=== PATIENT | male | born 1965 | race Caucasian/White ===

== ENCOUNTER 2018-01-01 21:17 | Emergency (ER) | payer MEDICAID, MEDICARE ==
--- NOTE | 2018-01-01 21:48 | RAD ---
CHEST TWO VIEWS: 01/01/18 COMPARISON: 05/09/17 study. HISTORY: Fell with right sided rib pain. Heart size is borderline. Mediastinal structures are unremarkable. The lungs are clear of any infiltr ative process. No signs of pneumothorax. There is elevation of the right hemidiaphragm. No definitive rib fracture is seen. Postoperative changes of the cervical spine are noted. IMPRESSION: No acute findings. POS: [facility]
--- NOTE | 2018-01-01 23:11 | CT ---
CT OF THE CHEST PERFORMED WITHOUT CONTRAST ENHANCEMENT: 01/01/18 HISTORY: COPD. History of fall last Sunday with right sided rib pain. The lungs are clear of any infiltrative process. Minimal gravity dependent atelectasis is seen in the lung bases. No pneumothorax. No rib fractures are visualized. Mediastinal structures appear unremarkable. There are some coronary artery calcifications present. The visualized portions of the liver and spleen appear unremarkable. There are arthritic changes of the spine noted. IMPRESSION: No acute findings. POS: [facility]
== END 2018-01-01 23:32 | disposition home or self-care (01) ==
LOC: ERS 21:17
DX: R07.89 Other chest pain (principal); I10 Essential (primary) hypertension; J44.9 Chronic obstructive pulmonary disease, unspecified; F17.210 Nicotine dependence, cigarettes, uncomplicated; Z86.711 Personal history of pulmonary embolism; Z79.899 Other long term (current) drug therapy; Z71.6 Tobacco abuse counseling; W18.30XA Fall on same level, unspecified, initial encounter
CPT/HCPCS: 71046; 71250; 99406

== ENCOUNTER 2018-03-13 06:45 | Outpatient (CLI) | payer MEDICARE | END 2018-03-13 06:46 | disposition home or self-care (01) | LOC: BICULT 06:45 | PROVIDERS: ATTEND Internal Medicine Gastroenterology | DX: R10.13 Epigastric pain (principal) | CPT/HCPCS: 76705 ==

== ENCOUNTER 2018-03-19 00:35 | Emergency (ER) | payer MEDICARE ==
[2018-03-19 01:35] LABS: Bilirubin Negative (Negative); Blood, Urine Negative (Negative); Clarity CLEAR (Clear); Glucose, Urine (Dipstick) >=1000 mg/dL (Negative); Leukocyte Negative (Negative); Nitrite Negative (Negative); Protein, Urine (Dipstick) Negative (Neg-Trace); Specific Gravity, Urine 1.016 (1.002-1.036); Urobilinogen 0.2 mg/dL (0.2-1.0)
[2018-03-19 01:37] LABS: #Eosinphils 0.1 thou/uL (0.0-0.7); #Lymphocytes 0.9 thou/uL (1.20-3.40); #Monocytes 0.5 thou/uL (0.11-0.59); #Neutrophils 11.1 thou/uL (1.40-6.50); %Eosinophils 0.4 % (0.0-10.0); %Lymphocytes 7.1 % (21.0-51.0); %Monocytes 4.2 % (0.0-10.0); %Neutrophils 88.2 % (42.0-75.0); Mean Corpuscular HGB CONC 33.7 g/dL (32.0-36.0); Mean Corpuscular Hemoglobin 27.5 pg (27.0-31.0); Mean Corpuscular Volume 81.7 fL (78.0-98.0); Mean Platelet Volume 6.5 fL (7.4-10.4); Platelet Count 383 thou/uL (130-400); RBC Distribution Width 15.1 % (11.5-14.5); Red Blood Cell (RBC) Count 4.36 mill/uL (4.70-6.10); White Blood Cell (WBC) Count 12.6 thou/uL (4.8-10.8)
[2018-03-19 02:00] LABS: ALT (SGPT) 23 U/L (8-55); AST (SGOT) 13 U/L (5-34); Albumin 3.9 g/dL (3.5-5.0); Alkaline Phosphatase 71 U/L (40-150); Anion Gap 17 mmol/L (10-20); BUN (Urea Nitrogen) 19 mg/dL (8.4-25.7); Bilirubin, Total 0.3 mg/dL (0.2-1.2); Calc. Creatinine Clearance 0 mL/min (70-130); Calcium 9.3 mg/dL (7.8-10.44); Carbon Dioxide 24 mmol/L (22-29); Chloride 96 mmol/L (98-107); Estimated GFR-MDRD 54; Globulin 3.2 g/dL (2.4-3.5); Potassium 4.8 mmol/L (3.5-5.1); Protein, Total 7.1 g/dL (6.0-8.3); Sodium 132 mmol/L (136-145)
[2018-03-19 02:09] LABS: Glucose 591 mg/dL (70-105)
[2018-03-19 02:33] LABS: Magnesium 2.5 mg/dL (1.6-2.6)
[2018-03-19 03:04] LABS: Base Excess-Venous 1.7 mmol/L (0 (+/- 2.5)); Bicarbonate (HCO3v) 25.8 mmol/L (1.0-85.0); Calcium, Ionized 1.01 mmol/L (1.12-1.32); O2 Tension (PvO2) 66.9 mmHg (35.0-45.0); Potassium 4.2 mmol/L (3.4-4.7); vO2 Saturation-calc 93.7 % (94-98)
[2018-03-19] MEDS ORDERED: Insulin Regular 300 UNITS/3 ML VIAL ONE (03:46)
[2018-03-19] MEDS ORDERED: Ondansetron ODT 4 MG TAB ONE (04:09)
== END 2018-03-19 04:57 | disposition home or self-care (01) ==
LOC: ERS 00:35
DX: E11.65 Type 2 diabetes mellitus with hyperglycemia (principal); E86.0 Dehydration; J44.9 Chronic obstructive pulmonary disease, unspecified; I10 Essential (primary) hypertension; Z87.891 Personal history of nicotine dependence; Z86.711 Personal history of pulmonary embolism; Z79.899 Other long term (current) drug therapy
CPT/HCPCS: 36415; 36416; 80053; 81003; 82010; 82330; 82803; 83735; 84100; 85025; 96361; 96374; J1815; Q0162

== ENCOUNTER 2018-03-29 07:28 | Outpatient (CLI) | payer MEDICARE ==
[2018-03-29] MEDS ORDERED: Iopamidol 370 76% 50 ML VIAL FS ONE (11:55)
[2018-03-29] MEDS ORDERED: Iopamidol 370 76% 100 ML VIAL ONE (11:55)
--- NOTE | 2018-03-29 15:27 | NM ---
RADIONUCLIDE GASTRIC EMPTYING SCAN: Date: 03/29/18 HISTORY: Abdominal distention, epigastric pain, benign neoplasm of duodenum, benign neoplasm of stomach. RADIOPHARMACEUTICAL: 2 mCi technetium-99m sulfur colloid administered orally in scrambled eggs. FINDINGS/IMPRESSION: There is 45% emptying of the ingested gastric contents at 30 minutes, 73% emptying a 2 hours, 77% emp tying at 3 hours, and 89% emptying at 4 hours. POS: [facility]
--- NOTE | 2018-03-29 16:00 | CT ---
CT ABDOMEN AND PELVIS WITH IV AND ORAL CONTRAST: 03/29/18 HISTORY: Abdominal pain. Nausea and vomiting. FINDINGS: Lung bases are clear. Cyst arising from the anterior margin left kidney is unchanged in appearance. T he liver, spleen, right kidney, adrenal glands, and pancreas are unremarkable. No enlarged lymph node s or free fluid. Postoperative changes of the anterior midline abdominal wall with eventration just b elow the level of the diaphragm. Small fat containing pouch of omentum just deep to the anterior abdo john wall above the umbilicus is also likely related to prior surgery. No evidence of inflammation. IMPRESSION: Postoperative changes. Chronic type findings are stable. No acute abnormalities are demonstrated to e xplain the patient's pain. POS: [facility]
== END 2018-03-29 07:29 | disposition home or self-care (01) ==
LOC: NM 07:28
PROVIDERS: ATTEND Internal Medicine Gastroenterology
DX: R10.13 Epigastric pain (principal); R14.0 Abdominal distension (gaseous); D13.1 Benign neoplasm of stomach; D13.2 Benign neoplasm of duodenum; Z98.890 Other specified postprocedural states
CPT/HCPCS: 74177; 78264; A9541

== ENCOUNTER 2018-04-10 21:05 | Emergency (ER) | payer MEDICAID, MEDICARE ==
[2018-04-10 21:36] LABS: #Eosinphils 0.1 thou/uL (0.0-0.7); #Lymphocytes 1.4 thou/uL (1.20-3.40); #Monocytes 0.9 thou/uL (0.11-0.59); #Neutrophils 13.1 thou/uL (1.40-6.50); %Basophils 0.3 % (0.0-1.0); %Eosinophils 0.4 % (0.0-10.0); %Lymphocytes 8.9 % (21.0-51.0); %Neutrophils 84.5 % (42.0-75.0); Hemoglobin 12.7 g/dL (14.0-18.0); Mean Corpuscular HGB CONC 34.1 g/dL (32.0-36.0); Mean Corpuscular Hemoglobin 27.7 pg (27.0-31.0); Mean Platelet Volume 6.3 fL (7.4-10.4); Platelet Count 442 thou/uL (130-400); RBC Distribution Width 16.5 % (11.5-14.5); Red Blood Cell (RBC) Count 4.58 mill/uL (4.70-6.10); White Blood Cell (WBC) Count 15.5 thou/uL (4.8-10.8)
[2018-04-10 21:45] LABS: Bilirubin Negative (Negative); Blood, Urine Negative (Negative); Clarity CLEAR (Clear); Glucose, Urine (Dipstick) >=1000 mg/dL (Negative); Leukocyte Negative (Negative); Nitrite Negative (Negative); Protein, Urine (Dipstick) Negative (Neg-Trace); Specific Gravity, Urine 1.028 (1.002-1.036); Urobilinogen 0.2 mg/dL (0.2-1.0)
[2018-04-10 21:56] LABS: ALT (SGPT) 24 U/L (8-55); AST (SGOT) 11 U/L (5-34); Albumin 3.9 g/dL (3.5-5.0); Alkaline Phosphatase 69 U/L (40-150); Anion Gap 16 mmol/L (10-20); BUN (Urea Nitrogen) 27 mg/dL (8.4-25.7); Bilirubin, Total 0.4 mg/dL (0.2-1.2); Calc. Creatinine Clearance 0 mL/min (70-130); Calcium 9.1 mg/dL (7.8-10.44); Carbon Dioxide 27 mmol/L (22-29); Chloride 94 mmol/L (98-107); Estimated GFR-MDRD 39; Globulin 2.8 g/dL (2.4-3.5); Glucose 459 mg/dL (70-105); Potassium 4.3 mmol/L (3.5-5.1); Protein, Total 6.7 g/dL (6.0-8.3); Sodium 133 mmol/L (136-145)
[2018-04-10 22:23] LABS: Bicarbonate (HCO3v) 26.9 mmol/L (1.0-85.0); CO2 Tension (PvCO2) 42.4 mmHg (41.0-51.0); Calcium, Ionized 1.14 mmol/L (1.12-1.32); O2 Tension (PvO2) 38.6 mmHg (35.0-45.0); T. Carbon Dioxide 28.2 mmol/L (1.0-85.0); pH (Venous) 7.411 (7.35-7.45); vO2 Saturation-calc 73.5 % (94-98)
[2018-04-11] MEDS ORDERED: Insulin Regular 300 UNITS/3 ML VIAL ONE (00:26)
== END 2018-04-11 00:52 | disposition home or self-care (01) ==
LOC: ERS 21:05
DX: E11.65 Type 2 diabetes mellitus with hyperglycemia (principal); J44.9 Chronic obstructive pulmonary disease, unspecified; I10 Essential (primary) hypertension; Z87.891 Personal history of nicotine dependence; Z86.711 Personal history of pulmonary embolism; Z79.4 Long term (current) use of insulin; Z79.899 Other long term (current) drug therapy
CPT/HCPCS: 36416; 80053; 81003; 82010; 82330; 82803; 83605; 85025; 96361; 96374; J1815

== ENCOUNTER 2018-05-10 19:34 | Observation (INO) | payer MEDICARE ==
[~2018-05-10 19:34] MED LIST: ISOVUE-370 76%-LOCM 1 ML ONE
[2018-05-10 20:04] LABS: #Eosinphils 0.2 thou/uL (0.0-0.7); #Lymphocytes 1.9 thou/uL (1.20-3.40); #Monocytes 0.8 thou/uL (0.11-0.59); #Neutrophils 5.6 thou/uL (1.40-6.50); %Basophils 0.5 % (0.0-1.0); %Eosinophils 1.8 % (0.0-10.0); %Lymphocytes 22.5 % (21.0-51.0); %Neutrophils 66.2 % (42.0-75.0); Hemoglobin 11.3 g/dL (14.0-18.0); Mean Corpuscular HGB CONC 32.8 g/dL (32.0-36.0); Mean Corpuscular Hemoglobin 27.8 pg (27.0-31.0); Mean Corpuscular Volume 84.6 fL (78.0-98.0); Mean Platelet Volume 6.3 fL (7.4-10.4); Platelet Count 531 thou/uL (130-400); Red Blood Cell (RBC) Count 4.06 mill/uL (4.70-6.10); White Blood Cell (WBC) Count 8.4 thou/uL (4.8-10.8)
--- NOTE | 2018-05-10 20:11 | RAD ---
CHEST ONE VIEW 05/10/18 HISTORY: Chest pain. COMPARISON: Chest radiograph 01/01/18. FINDINGS: Lungs are without focal air space consolidation, pneumothorax or effusion. Cardiac silhouette and med iastinal contours are similar. No acute osseous abnormality. IMPRESSION: No acute intrathoracic abnormality. POS: [facility]
[2018-05-10 20:29] LABS: ALT (SGPT) 32 U/L (8-55); AST (SGOT) 24 U/L (5-34); Alkaline Phosphatase 52 U/L (40-150); Anion Gap 14 mmol/L (10-20); BUN (Urea Nitrogen) 8 mg/dL (8.4-25.7); Bilirubin, Total 0.3 mg/dL (0.2-1.2); CK (CPK) 41 U/L (30-200); Calc. Creatinine Clearance 0 mL/min (70-130); Calcium 9.2 mg/dL (7.8-10.44); Carbon Dioxide 29 mmol/L (22-29); Chloride 99 mmol/L (98-107); Estimated GFR-MDRD 81; Glucose 132 mg/dL (70-105); Lipase 40 U/L (8-78); Potassium 3.5 mmol/L (3.5-5.1); Sodium 138 mmol/L (136-145)
[2018-05-10 20:33] LABS: Troponin I 0.017 ng/mL (< 0.028)
--- NOTE | 2018-05-10 21:21 | CT ---
CT ANGIOGRAM CHEST WITH CONTRAST: 05/10/18 HISTORY: Chest pain. Shortness of breath. COMPARISON: CT angiogram chest 05/09/17. FINDINGS: CT angiogram chest performed after the intravenous administration of contrast. 3D rendering provided. No proximal segmental pulmonary arterial filling defect. Likely reactive right paratracheal lymph no coby. Increased mediastinal fat. No evidence for pneumonia. No significant pericardial effusion. Healing right anterior fourth, fifth, rib fractures. The manubrium and the sternum are intact. No left sided rib fractures. No thoracic sp ine compression fracture. Diffuse hepatic steatosis. IMPRESSION: 1. No proximal segmental pulmonary arterial filling defect. 2. Healing right anterior fourth and fifth rib fractures. POS: [facility]
[2018-05-10] MEDS ORDERED: Meclizine HCl 25 MG TAB ONE (21:35)
[2018-05-10] MEDS ORDERED: Ondansetron ODT 4 MG TAB SL PRN (22:30)
[2018-05-10] MEDS ORDERED: Sodium Chloride 0.9% 1,000 ML IV SCH (22:30)
[2018-05-10] MEDS ORDERED: Ondansetron HCl/PF 4 MG/2 ML Vial IVP PRN (22:30)
[2018-05-10] MEDS ORDERED: Albuterol Sulfate 2.5 mg/3 ml Neb NEB PRN (22:54)
[2018-05-10] MEDS ORDERED: Budesonide 0.25 MG/2 ML NEB NEB PRN (22:54)
[2018-05-10 23:19] LABS: Troponin I 0.042 ng/mL (< 0.028)
[2018-05-10] MEDS ORDERED: rOPINIRole HCl 1 MG TAB PO SCH (23:45)
[2018-05-11] MEDS ORDERED: Dextrose 5% in Water 1,000 ML IV PRN (02:26)
[2018-05-11] MEDS ORDERED: Dextrose 50% Abboject 50 ML SYRINGE SLOW IVP PRN (02:26)
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
[2018-05-11 04:40] LABS: #Eosinphils 0.2 thou/uL (0.0-0.7); #Lymphocytes 2.1 thou/uL (1.20-3.40); #Monocytes 0.6 thou/uL (0.11-0.59); #Neutrophils 5.4 thou/uL (1.40-6.50); %Basophils 0.5 % (0.0-1.0); %Eosinophils 2.1 % (0.0-10.0); %Lymphocytes 25.1 % (21.0-51.0); %Neutrophils 65.2 % (42.0-75.0); Hemoglobin 10.8 g/dL (14.0-18.0); Mean Corpuscular HGB CONC 33.1 g/dL (32.0-36.0); Mean Corpuscular Volume 84.6 fL (78.0-98.0); Mean Platelet Volume 6.4 fL (7.4-10.4); Platelet Count 454 thou/uL (130-400); RBC Distribution Width 16.8 % (11.5-14.5); Red Blood Cell (RBC) Count 3.85 mill/uL (4.70-6.10); White Blood Cell (WBC) Count 8.3 thou/uL (4.8-10.8)
[2018-05-11 05:03] LABS: Anion Gap 14 mmol/L (10-20); BUN (Urea Nitrogen) 7 mg/dL (8.4-25.7); Calc. Creatinine Clearance 197 mL/min (70-130); Calcium 8.7 mg/dL (7.8-10.44); Carbon Dioxide 25 mmol/L (22-29); Chloride 102 mmol/L (98-107); Estimated GFR-MDRD Greater than 90; Glucose 118 mg/dL (70-105); Potassium 3.2 mmol/L (3.5-5.1); Sodium 138 mmol/L (136-145)
[2018-05-11] MEDS: Furosemide 20 MG TAB PO SCH ×2 (05:39→14:44)
[2018-05-11] MEDS: Apixaban 5 MG TAB PO SCH ×2 (08:11→21:06)
[2018-05-11] MEDS: Acetaminophen 325 MG TAB PO PRN ×3 (08:11→23:25)
[2018-05-11] MEDS: Aspirin 325 MG TAB PO SCH (08:11)
[2018-05-11] MEDS: Potassium Chloride 20 MEQ TAB PO SCH (08:13)
[2018-05-11] MEDS: Mometasone/Formoterol 120 PUFF INHALER INH SCH ×2 (08:23→18:12)
--- NOTE | 2018-05-11 08:37 | ULT ---
CAROTID ULTRASOUND: Date: 05/11/18 HISTORY: Near syncope. Dizziness. COMPARISON: None. TECHNIQUE: Jones scale, color flow, Doppler imaging, and spectral waveform analysis performed in the carotid and vertebral arteries. FINDINGS: RIGHT CAROTID: There is atherosclerosis in the distal common carotid artery, carotid bifurcation, and internal carot id artery. Peak systolic velocity of the common carotid artery is 144 cm/second. Peak systolic veloci ty of the internal carotid artery is 83 cm/second. Systolic ICA/CCA ratio is 0.6. LEFT CAROTID: Small amount of atherosclerotic disease in the carotid bifurcation. Peak systolic velocity of the com mon carotid artery is 120 cm/second. Peak systolic velocity of the internal carotid artery is 92.8 cm /second. Systolic ICA/CCA ratio is 0.8. Neither vertebral artery could be assessed. IMPRESSION: Moderate (50-69%) stenosis involving the right common carotid artery. Better interrogation with CT an giogram of the neck is recommended. POS: [facility]
[2018-05-11] MEDS ORDERED: Carvedilol 6.25 MG TAB PO SCH (09:00)
[2018-05-11] MEDS ORDERED: Potassium Chloride 40 MEQ in Premix Bag 1 BAG IVPB SCH (10:15)
[2018-05-11] MEDS: Potassium Chloride 20 MEQ in Premix Bag 1 BAG IVPB SCH ×2 (10:55→14:43)
[2018-05-11] MEDS: Sodium Chloride 0.9% 1,000 ML IV SCH (10:58)
--- NOTE | 2018-05-11 11:34 | PDOC.PN ---
- Subjective Encounter Start Date: 05/11/18 Encounter Start Time: 11:32 Subjective: c/o abd cramps likle muscle cramps -: no N/V/D.no F/C.has had extensice w/u as an OP for same -: no CP.but still feels SOB - Objective Resuscitation Status: Resuscitation Status FULL:Full Resuscitation MAR Reviewed: Yes Vital Signs & Weight: Vital Signs (12 hours) Temp Pulse Resp BP BP Pulse Ox 05/11/18 11:17 98.3 F 86 18 108/60 95 05/11/18 08:23 95 20 95 05/11/18 08:12 131/76 05/11/18 07:23 98.1 F 97 18 131/76 94 L 05/11/18 02:15 82 18 113/58 L 96 Weight Weight 298 lb 14.4 oz Result Diagrams: 05/11/18 03:58 05/11/18 03:58 Additional Labs: Laboratory Tests 05/10/18 05/10/18 05/11/18 19:54 22:49 01:55 Troponin I 0.017 0.042 H 0.030 H Phys Exam - Physical Examination Constitutional: NAD CPAP mask on HEENT: PERRLA, moist MMs, sclera anicteric, oral pharynx no lesions Neck: no nodes, no JVD, supple, full ROM Respiratory: no wheezing, no rales, no rhonchi, clear to auscultation bilateral Cardiovascular: RRR, no significant murmur, no rub Gastrointestinal: soft, non-tender, no distention, positive bowel sounds Musculoskeletal: no edema, pulses present Neurological: non-focal, normal sensation, moves all 4 limbs Psychiatric: normal affect, A&O x 3 Skin: no rash Dx/Plan (1) Near syncope Status: Acute (2) NSTEMI (non-ST elevated myocardial infarction) Code(s): I21.4 - NON-ST ELEVATION (NSTEMI) MYOCARDIAL INFARCTION Status: Acute (3) Hypokalemia Code(s): E87.6 - HYPOKALEMIA Status: Acute (4) Chest pain Code(s): R07.9 - CHEST PAIN, UNSPECIFIED Status: Acute (5) Dyspnea Code(s): R06.00 - DYSPNEA, UNSPECIFIED Status: Acute Qualifiers: Dyspnea type: dyspnea on exertion Qualified Code(s): R06.09 - Other forms of dyspnea (6) Hx pulmonary embolism Code(s): Z86.711 - PERSONAL HISTORY OF PULMONARY EMBOLISM Status: Chronic Comment: on eliquis (7) Chronic anticoagulation Code(s): Z79.01 - CORRECTION (CURRENT) USE OF ANTICOAGULANTS Status: Chronic (8) Carotid artery stenosis Code(s): I65.29 - OCCLUSION AND STENOSIS OF UNSPECIFIED CAROTID ARTERY Status : Acute Qualifiers: Laterality: left Qualified Code(s): I65.22 - Occlusion and stenosis of left carotid artery (9) Hypertension Code(s): I10 - ESSENTIAL (PRIMARY) HYPERTENSION Status: Chronic (10) CAD (coronary artery disease) Code(s): I25.10 - ATHSCL HEART DISEASE OF [place] CORONARY ARTERY W/O ANG PCTRS Status: Chronic Comment: on BB, ARB,ranexa. (11) COPD (chronic obstructive pulmonary disease) Status: Chronic (12) KATHERIN (obstructive sleep apnea) Code(s): G47.33 - OBSTRUCTIVE SLEEP APNEA (ADULT) (PEDIATRIC) Status: Chronic Comment: Home CPAP - Plan respiratory therapy, out of bed/ambulate, DVT proph w/SCDs Unclear etiology of symptoms. check ECHO -: Pt reports a Treadmill stress test done by PCP 2 weeks ago- get report -: cont ASA, Ranexa,Imdur. -: get carotid CTA given stenosis and near syncope. -: pt may benefit from starting DAPT & stopping Eliquis if no longer indicated * .cardiology recs requested/ * home meds as below. * Not on any statin.check lipid panel and start Atorvastatin given CA stenosis as well Review of Systems - Review of Systems Constitutional: negative: fever, chills, sweats, weakness, malaise, other ENT: negative: Ear Pain, Ear Discharge, Nose Pain, Nose Discharge, Nose Congestion, Mouth Pain, Mouth Swelling, Throat Pain, Throat Swelling, Other Respiratory: SOB with Excertion. negative: Cough, Dry, Shortness of Breath, Hemoptysis, Pleuritic Pain, Sputum, Wheezing Cardiovascular: negative: chest pain, palpitations, orthopnea, paroxysmal nocturnal dyspnea, edema, light headedness, other Gastrointestinal: Abdominal Pain. negative: Nausea, Vomiting, Diarrhea, Constipation, Melena, Hematochezia, Other Genitourinary: negative: Dysuria, Frequency, Incontinence, Hematuria, Retention , Other Musculoskeletal: negative: Neck Pain, Shoulder Pain, Arm Pain, Back Pain, Hand Pain, Leg Pain, Foot Pain, Other Skin: negative: Rash, Lesions, Shaw, Bruising, Other Neurological: negative: Weakness, Numbness, Incoordination, Change in Speech, Confusion, Seizures, Other - Medications/Allergies Allergies/Adverse Reactions: Allergies Allergy/AdvReac Type Severity Reaction Status Date / Time No Known Drug Allergies Allergy Verified 05/10/18 22:53 Medications: Current Medications Acetaminophen (Tylenol) 650 mg PO Q4H PRN PRN Reason: Headache/Fever or Pain Last Admin: 05/11/18 08:11 Dose: 650 mg Albuterol Sulfate (Ventolin) 1.2 mg NEB TID PRN PRN Reason: sob/wheezing Apixaban (Eliquis) 5 mg PO BID [facility] Last Admin: 05/11/18 08:11 Dose: 5 mg Aspirin (Aspirin) 325 mg PO QA-[facility] Stop: 05/15/18 09:30 Last Admin: 05/11/18 08:11 Dose: 325 mg Budesonide (Pulmicort Neb Solution) 0.25 mg NEB BID PRN PRN Reason: SOB &/or Wheezing Carvedilol (Coreg) 12.5 mg PO BID [facility] Last Admin: 05/11/18 08:12 Dose: 12.5 mg Dextrose/Water (Dextrose 50%) 25 gm SLOW IVP PRN PRN PRN Reason: Hypoglycemia Furosemide (Lasix) 80 mg PO 06,14 [facility] Last Admin: 05/11/18 05:39 Dose: 80 mg Glucagon (Glucagon) 1 mg IM PRN PRN PRN Reason: Hypoglycemia Dextrose/Water (D5w) 1,000 mls @ 0 mls/hr IV .Q0M PRN PRN Reason: Hypoglycemia Sodium Chloride (Normal Saline 0.9%) 1,000 mls @ 75 mls/hr IV .[id number] [facility] Last Admin: 05/11/18 10:58 Dose: 1,000 mls Potassium Chloride 20 meq/ (Device) 100 mls @ 50 mls/hr IVPB Q2H [facility] Stop: 05/11/18 14:29 Last Admin: 05/11/18 10:55 Dose: 100 mls Insulin Human Lispro (Humalog) 0 units SC .MILD SLIDING SCALE PRN PRN Reason: Mild Correctional Scale Irbesartan (Avapro) 150 mg PO DAILY [facility] Isosorbide Mononitrate (Imdur) 60 mg PO DAILY [facility] Last Admin: 05/11/18 08:12 Dose: 60 mg Mometasone Furoate/Formoterol Fumar (Dulera 200 Mcg/5 Mcg Inhaler) 2 puff INH BID-RT [facility] Last Admin: 05/11/18 08:23 Dose: 2 puff Pantoprazole Sodium (Protonix) 40 mg PO DAILY [facility] Last Admin: 05/11/18 08:13 Dose: 40 mg Potassium Chloride (K-Dur) 20 meq PO DAILY [facility] Last Admin: 05/11/18 08:13 Dose: 20 meq Ranolazine (Ranexa) 1,000 mg PO BID [facility] Last Admin: 05/11/18 08:13 Dose: 1,000 mg Ropinirole HCl (Requip) 2 mg PO [facility]
[2018-05-11 12:23] LABS: Cardiac Risk 4.6 (Less than 4.5)
--- NOTE | 2018-05-11 16:07 | CON ---
DATE OF CONSULT: 05/11/18 HISTORY OF PRESENT ILLNESS: The patient is a 52-year-old gentleman who presents for evaluation of dizziness. The patient has a long history of coronary artery disease. Previously he has undergone cardiac catheterization in 2015. The patient was found to have diffuse coronary artery disease with an 80% distal apical lesion. The patient has been on medical therapy has done well and free of chest discomfort. He does report having a history of dizziness, particularly when he stands. The patient was in his usual state of health when he suddenly became very dizzy and lightheaded. The patient also reporting having midsternal chest discomfort. This occurred only when he would lie down in a certain position. The patient denies having any present chest discomfort. PAST MEDICAL HISTORY: 1. Coronary artery disease. 2. Hypertension. 3. History of pulmonary embolus. 4. Diabetes mellitus. 5. Sleep apnea. 6. Morbid obesity. 7. Psoriasis PAST SURGICAL HISTORY: He has had facial surgery. He has had colon surgery and neck surgery. SOCIAL HISTORY: He is a former smoker. ALLERGIES: No known drug allergies: FAMILY HISTORY: No strong family history of coronary artery disease. MEDICATIONS ON ADMISSION: Apixaban 5 b.i.d., aspirin 81 daily, Coreg 12.5 b.i.d., Avapro 150 daily, Imdur 60 daily, Prilosec 40 daily, potassium 20 daily , Ranexa 1000 b.i.d., glipizide 10 b.i.d., metformin 1000 b.i.d., ropinirole 2 mg daily. REVIEW OF SYSTEMS: Ten-point system otherwise unremarkable. PHYSICAL EXAMINATION: GENERAL: This is an obese gentleman in no acute distress. VITAL SIGNS: Blood pressure 108/60. NECK: Full. No jugular venous distention, no carotid bruits. LUNGS: Clear to auscultation. HEART: Regular rate and rhythm, normal S1, S2. ABDOMEN: Markedly distended. EXTREMITIES: Showed no edema. SKIN: Warm. NEUROLOGIC: Nonfocal. VASCULAR: Radial pulses were 2+. LABORATORY DATA: Sodium 130, potassium 3.2, chloride 102, bicarbonate 25, BUN 7 , creatinine is 0.83. His troponin was 0.03. BNP was 34. White blood cell count 8.3, hemoglobin 10.8, hematocrit 32.6. His EKG revealed him to have normal sinus rhythm and otherwise normal ECG. IMPRESSION: 1. Dizziness, possibly orthostatic. 2. Chest pain, atypical. 3. Hypertension. 4. History of pulmonary embolus. 5. Diabetes mellitus. 6. Sleep apnea. 7. Morbid obesity. This gentleman presents primarily with dizziness. He has atypical chest discomfort. We will check the patient's orthostatics. We will check an echocardiogram. The patient's carotid ultrasound did reveal evidence of cerebrovascular disease. We will obtain a CT MRA. We will follow this patient with you through his hospitalization. We will try to decrease the dose of his Coreg. MTDD
[2018-05-11] MEDS: HumaLOG 300 UNITS/3 ML VIAL SC PRN (17:08)
[2018-05-11] MEDS ORDERED: rOPINIRole HCl 1 MG TAB PO SCH (21:00)
[2018-05-11] MEDS ORDERED: Atorvastatin Calcium 20 MG TAB PO SCH (21:00)
[2018-05-11] MEDS: Carvedilol 6.25 MG TAB PO SCH (21:06)
[2018-05-12 04:28] LABS: Anion Gap 15 mmol/L (10-20); BUN (Urea Nitrogen) 7 mg/dL (8.4-25.7); Calc. Creatinine Clearance 207 mL/min (70-130); Calcium 8.4 mg/dL (7.8-10.44); Carbon Dioxide 24 mmol/L (22-29); Chloride 102 mmol/L (98-107); Estimated GFR-MDRD Greater than 90; Glucose 142 mg/dL (70-105); Potassium 3.3 mmol/L (3.5-5.1); Sodium 138 mmol/L (136-145)
[2018-05-12] MEDS: Furosemide 20 MG TAB PO SCH (05:43)
[2018-05-12] MEDS: Sodium Chloride 0.9% 1,000 ML IV SCH (05:43)
[2018-05-12] MEDS: Mometasone/Formoterol 120 PUFF INHALER INH SCH (07:39)
[2018-05-12 08:07] VITALS: BP 142/83; TEMP 97.9
[2018-05-12] MEDS: Aspirin 325 MG TAB PO SCH (09:37)
[2018-05-12] MEDS: Carvedilol 6.25 MG TAB PO SCH (09:37)
[2018-05-12] MEDS: Apixaban 5 MG TAB PO SCH (09:37)
[2018-05-12] MEDS: Potassium Chloride 20 MEQ TAB PO SCH (09:38)
--- NOTE | 2018-05-12 09:38 | CT ---
CT ANGIOGRAM OF NECK: Date: 05/11/18 HISTORY: Near syncopal episode. Abnormal carotid ultrasound. Possible moderate stenosis involving the right co mmon carotid artery. TECHNIQUE: CT angiogram of the neck is performed in the axial plane. Three-dimensional reformatted images are turcios bmitted for interpretation. FINDINGS: Visualized brain parenchyma and orbits are unremarkable. Aerodigestive tract is patent. No mucosal abnormality. Limited evaluation of the anterior oral cavity due to dental amalgam artifact. Epiglottis has a normal caliber. Preepiglottic fat is preserved. The re is no prevertebral soft tissue swelling. Cervical fusion changes at C5-C6 are noted. Grade I anter olisthesis of C2 upon C3. Cervical spine vertebral body heights are maintained. There is no fracture. Varying degrees of central canal stenosis and neural foraminal narrowing on the basis of degenerativ e change. Symmetric attenuation of the parotid and submandibular glands. Note, there is fatty replacement of volodymyr th parotid glands. Sternocleidomastoid muscles are unremarkable. Unremarkable thyroid gland. No evidence of lymphadenopathy by size criteria. Upper mediastinum is unremarkable. Chronic changes in visualized lung apices. CT ANGIOGRAM: There is appropriate enhancement and luminal diameter of the visualized aortic arch. Right Carotid: Right carotid artery origin has appropriate enhancement and luminal diameter. The rig ht common carotid artery has appropriate enhancement and luminal diameter. Calcified plaque without s ignificant stenosis in the right carotid bifurcation and proximal internal carotid artery. Though the re is no significant stenosis based upon NASCET criteria, there does appear to be small ulcerative pl aque along the posterolateral aspect of the right carotid bifurcation measuring approximately 3.0 mm. Left Carotid: The left carotid artery origin has appropriate enhancement and luminal diameter. The l eft common carotid artery, carotid bifurcation, and internal carotid artery have appropriate enhancem ent and luminal diameter. There is atherosclerotic disease without significant stenosis in the left c arotid bifurcation and proximal internal carotid artery. Bilateral subclavian arteries are patent. Bilateral vertebral arteries are patent throughout their co urse in the neck. Left vertebral artery is dominant. IMPRESSION: 1. Unremarkable CT angiogram of neck. No significant stenosis based upon NASCET criteria. 2. Small ulcerative plaque along the lateral aspect of the right carotid bifurcation. Consider consu ltation with cardiovascular surgery for further evaluation. POS: [facility]
[2018-05-12] MEDS: HumaLOG 300 UNITS/3 ML VIAL SC PRN (11:43)
--- NOTE | 2018-05-12 12:31 | DIS ---
DATE OF ADMISSION: 05/11/2018 DATE OF DISCHARGE: 05/12/2018 CONDITION AT THE TIME OF DISCHARGE: Stable and improved. DISCHARGE DISPOSITION: Home. PRIMARY CARE PHYSICIAN: Aaron Funk M.D. DISCHARGE DIAGNOSES: 1. Near syncope, likely vasovagal versus secondary to beta blockers, resolved. 2. [id number]-AG-[id number] myocardial infarction. 3. Hypokalemia. 4. Chest pain, atypical. Acute coronary syndrome ruled out. 5. Dyspnea, likely chronic. 6. History of pulmonary embolism, on chronic anticoagulation. 7. Hypertension. 8. Coronary artery disease. 9. Chronic obstructive pulmonary disease. 10. Obstructive sleep apnea, on home CPAP. 11. Mild right-sided internal carotid artery atherosclerotic plaque. INHOUSE CONSULTATIONS: Cardiology, Dr. Aakash Rouse. PROCEDURES DONE IN THE HOSPITAL: 1. CT angio of the thorax, which is negative for any pulmonary embolism in the proximal vessels. He aling right anterior fourth and fifth rib fractures are seen. 2. Carotid Doppler ultrasound, which is concerning for less than 70% stenosis of the right common ca rotid artery. 3. CT angio of the neck, which shows only mild atherosclerotic plaque at the bifurcation of right ca rotid. 4. Transthoracic echocardiogram, which shows EF of 60%-65%, an unremarkable echo. HISTORY OF PRESENT ILLNESS: Mr. Negro is a 52-year-old male with past medical history of coronary a rtery disease, status post cardiac catheterization in 2014, which showed 80% apical lesion, who is on medical management, presented to the emergency room with complaints of feeling dizzy and lightheaded . He was hemodynamically stable. He underwent a CT angio given his history of pulmonary embolism, e isaura though he is religiously taking his Eliquis. It was negative for the same. He was admitted for further workup and rule out acute coronary syndrome. Please see admission history and physical for f urther details. HOSPITAL COURSE: His cardiac enzymes were unremarkable except for mild elevation to as high as 0.042 . He had no EKG changes. A carotid Doppler ultrasound and echo was ordered given his near syncopal episode. Carotid Doppler was concerning for some stenosis and a CT angio of the neck was done. It o nly showed mild atherosclerotic plaque at the right carotid bifurcation, which is not causing his sym ptoms at this time. Cardiology saw the patient and his Coreg was reduced from 12.5 to 6.[address] Padma meléndez lso recommended that he stop taking his Avapro for the time being and follow up in the outpatient set ting. He was continued on his home CPAP while in the hospital. He had no recurrence of his symptoms. This morning, he has been cleared by Cardiology for discharge and I have seen and examined the patien t and discharge plan was discussed with him and he verbalizes understanding. PHYSICAL EXAMINATION: This morning, VITAL SIGNS: Temperature 97.9, pulse of 84, respirations 22, saturating 97% on room air, blood press ure 142/83. Orthostatics were checked and were negative. He is awake, alert, oriented x3. CHEST: Clear to auscultation bilaterally. Rate and rhythm regular. He will follow up with primary care physician in 7-10 days and Cardiology in 2-3 weeks. He is also g en outpatient referral for Cardiovascular Surgery, Dr. Naranjo, to be seen within the next 3-6 months for followup for his mild right-sided carotid bifurcation plaque. He has been started on statin for this. DISCHARGE MEDICATION: New medication, atorvastatin 20 mg daily.
== END 2018-05-12 12:11 | disposition home or self-care (01) ==
LOC: ERS 19:34 → 2SW 21:30
PROVIDERS: ADMIT Hospitalist; ATTEND Hospitalist
DX: I21.4 Non-ST elevation (NSTEMI) myocardial infarction (principal); E87.6 Hypokalemia; I10 Essential (primary) hypertension; I25.10 Atherosclerotic heart disease of native coronary artery without angina pectoris; J44.9 Chronic obstructive pulmonary disease, unspecified; G47.33 Obstructive sleep apnea (adult) (pediatric); I65.21 Occlusion and stenosis of right carotid artery; E66.01 Morbid (severe) obesity due to excess calories; E11.9 Type 2 diabetes mellitus without complications; Z86.711 Personal history of pulmonary embolism; Z79.84 Long term (current) use of oral hypoglycemic drugs; Z79.899 Other long term (current) drug therapy
CPT/HCPCS: 70498; 71045; 71275; 80048 ×2; 80053; 80061; 82550; 82553; 82962 ×2; 83690; 83880; 84484 ×3; 85025 ×2; 93005; 93306; 93880; 94640 ×2; 94664; 96361 ×2; 96365; 96366; 99285; G0378 ×2; 36415; 36416; J3480

== ENCOUNTER 2018-09-03 10:48 | Outpatient (CLI) | payer MEDICARE ==
--- NOTE | 2018-09-04 15:09 | RAD ---
MODIFIED BARIUM SWALLOW WITH SPEECH THERAPIST: HISTORY: Dysphagia and gastroesophageal reflux disease without esophagitis. COMPARISON: None. FINDINGS/IMPRESSION: A modified barium swallow was performed by the speech therapist. A video was performed. No aspirati on or penetration was seen during the examination. Please see dedicated speech therapy report for sp ecific findings and recommendations. POS: EVIE
== END 2018-09-03 10:49 | disposition home or self-care (01) ==
PROVIDERS: ATTEND Otolaryngology Plastic Surgery within the Head & Neck
DX: R13.10 Dysphagia, unspecified (principal)
CPT/HCPCS: 74230

== ENCOUNTER 2018-09-08 22:55 | Observation (INO) | payer MEDICARE ==
[2018-09-08 23:27] LABS: #Eosinphils 0.1 thou/uL (0.0-0.7); #Lymphocytes 2.1 thou/uL (1.20-3.40); #Monocytes 0.9 thou/uL (0.11-0.59); #Neutrophils 9.1 thou/uL (1.40-6.50); %Eosinophils 0.8 % (0.0-10.0); %Lymphocytes 17.3 % (21.0-51.0); %Monocytes 7.2 % (0.0-10.0); %Neutrophils 74.7 % (42.0-75.0); Hemoglobin 12.1 g/dL (14.0-18.0); Mean Corpuscular Hemoglobin 27.5 pg (27.0-31.0); Mean Corpuscular Volume 80.8 fL (78.0-98.0); Mean Platelet Volume 6.5 fL (7.4-10.4); Platelet Count 422 thou/uL (130-400); RBC Distribution Width 16.3 % (11.5-14.5); Red Blood Cell (RBC) Count 4.39 mill/uL (4.70-6.10); White Blood Cell (WBC) Count 12.2 thou/uL (4.8-10.8)
--- NOTE | 2018-09-08 23:35 | RAD ---
EXAM: CHEST ONE VIEW: History: 53-year-old male with history of shortness of breath. Comparison: 05-10-18 FINDINGS: Monitor leads overlie the chest. Heart size is within normal limits. No confluent pneumonia, overt ed yane, or pleural effusion. Anterior cervical fusion changes of the lower cervical spine. IMPRESSION: No significant acute intrathoracic disease. No evidence of pneumonia or acute edema, or pleural effus ion. Atherosclerosis of the aorta. Stable from prior study. POS: SHAVONNE
[2018-09-08] MEDS ORDERED: methylPREDNISolone Sod Succ/PF 125 MG/2 ML VIAL ONE (23:38)
[2018-09-08 23:48] LABS: ALT (SGPT) 22 U/L (8-55); AST (SGOT) 11 U/L (5-34); Alkaline Phosphatase 66 U/L (40-150); Anion Gap 18 mmol/L (10-20); BUN (Urea Nitrogen) 8 mg/dL (8.4-25.7); Bilirubin, Total 0.4 mg/dL (0.2-1.2); Calc. Creatinine Clearance 0 mL/min (70-130); Calcium 9.3 mg/dL (7.8-10.44); Carbon Dioxide 25 mmol/L (22-29); Chloride 101 mmol/L (98-107); Estimated GFR-MDRD 71; Globulin 3.2 g/dL (2.4-3.5); Glucose 117 mg/dL (70-105); Potassium 3.8 mmol/L (3.5-5.1); Protein, Total 7.2 g/dL (6.0-8.3); Sodium 140 mmol/L (136-145)
[2018-09-09 00:04] LABS: CKMB 0.8 ng/mL (0-6.6)
[2018-09-09] MEDS ORDERED: Aspirin 325 MG TAB ONE (01:11)
[2018-09-09] MEDS ORDERED: Nitroglycerin 0.4 MG TAB (25 Tab Bottle) ONE (01:11)
[2018-09-09] MEDS ORDERED: Ketorolac Tromethamine 30 MG/ML VIAL ONE (02:44)
[2018-09-09] MEDS ORDERED: Dextrose 50% Abboject 50 ML SYRINGE SLOW IVP PRN (04:11)
[2018-09-09] MEDS ORDERED: Bisacodyl 10 MG SUPP PR PRN (04:11)
[2018-09-09] MEDS ORDERED: Bisacodyl 5 MG TAB PO PRN (04:11)
[2018-09-09] MEDS ORDERED: HumaLOG 300 UNITS/3 ML VIAL SC PRN ×2 (04:11)
[2018-09-09] MEDS ORDERED: Calcium Carbonate 500 MG ChewTAB PO PRN (04:11)
[2018-09-09] MEDS ORDERED: Dextrose 5% in Water 1,000 ML IV PRN (04:11)
[2018-09-09] MEDS ORDERED: Acetaminophen 325 MG TAB PO PRN (04:11)
[2018-09-09] MEDS ORDERED: Senokot S 8.6-50 MG TAB PO PRN (04:11)
[2018-09-09] MEDS ORDERED: Budesonide 0.25 MG/2 ML NEB NEB PRN (04:16)
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
[2018-09-09] MEDS ORDERED: HumaLOG 300 UNITS/3 ML VIAL ONE (06:26)
[2018-09-09] MEDS ORDERED: Mometasone/Formoterol 120 PUFF INHALER INH SCH (06:30)
[2018-09-09] MEDS ORDERED: Ipratropium Bromide 2.5 ml Neb NEB SCH (07:00)
--- NOTE | 2018-09-09 08:12 | CT ---
PRELIMINARY REPORT/[facility]/EMERGENTY AFTER-HOURS PROCEDURE CT Chest Without Contrast EXAM DATE/TIME: 09/09/2018 12:50 AM CLINICAL HISTORY: 53 years old, male; Signs and symptoms; Cough and shortness of breath; Patient HX: 53 yo m presents t o ed with SOB. PT reports intermittent SOB since may that has gradually worsened tonight, with as sociated cough. PT reports he is a former smoker, PT smoked a pack per day for 30 years but quit 4 ye ars ago. PT doesn't use oxygen at home, but does take at-home neb treatments 3x per day TECHNIQUE: Axial computed tomography images of the chest without intravenous contrast. Coronal reformatted images were created and reviewed. COMPARISON: No relevant prior studies available. FINDINGS: Lungs: Indeterminate 3 mm right upper lobe pulmonary nodule, probably clinically insignificant. No co nsolidation. No masses. Pleural space: Normal. No pneumothorax. No pleural effusion. Heart: Normal. No cardiomegaly. No pericardial effusion. Mediastinum: Esophagus is unremarkable. Aorta: Normal. No aortic aneurysm. Lymph nodes: Unremarkable. No enlarged lymph nodes. Bones/joints: Unremarkable. No acute fracture. Soft tissues: Gynecomastia. Liver: Hepatic steatosis. Kidneys and ureters: Left renal cyst. IMPRESSION: No acute findings. Thank you for allowing us to participate in the care of your patient. Dictated and Authenticated by: Carlos Alberto Salgado MD 09/09/2018 1:01 AM Central Time ([place] & [place]) FINAL REPORT CT CHEST NONCONTRAST: DATE: 09/09/2018. TIME: Performed on emergency basis at 0052 hours. HISTORY: Chest pain. Dyspnea. COMPARISON: 03/29/2018 and 01/01/2018. FINDINGS: Agree with the preliminary report by Dr. Salgado from [facility]. Tiny nonspecific left upper lobe nodule. No lobar consolidation or dominant mass. Lack of contrast limits evaluation of the va sculature and soft tissues. Left renal cyst partially visualized. Hepatosteatosis. POS: [facility]
[2018-09-09] MEDS ORDERED: Apixaban 5 MG TAB PO SCH (09:00)
[2018-09-09] MEDS ORDERED: Famotidine 20 MG TAB PO SCH (09:00)
[2018-09-09] MEDS ORDERED: Famotidine/PF 20 mg/2ml Vial SLOW IVP SCH (09:00)
[2018-09-09] MEDS ORDERED: Carvedilol 6.25 MG TAB PO SCH (09:00)
[2018-09-09] MEDS ORDERED: Levofloxacin 500 mg/D5W 100 ml Premix Bag ONE (09:09)
[2018-09-09] MEDS ORDERED: Famotidine 20 MG TAB ONE (09:14)
[2018-09-09] MEDS ORDERED: Atorvastatin Calcium 20 MG TAB PO SCH (21:00)
[2018-09-09] MEDS ORDERED: rOPINIRole HCl 2 MG TAB PO SCH (21:00)
--- NOTE | 2018-09-10 04:29 | DIS ---
DATE OF ADMISSION: 09/09/2018 DATE OF DISCHARGE: 09/09/2018 PRIMARY CARE PROVIDER: CHAVA Sam DISCHARGE DIAGNOSIS: Chronic obstructive pulmonary disease exacerbation. CONDITION OF PATIENT ON THE DAY OF DISCHARGE: Stable. I assessed Mr. Negro prior to discharge. He reports feeling better. Vital signs are stable. S1 and S2 are heard, regular. Lungs are clear to auscultation bilaterally. DISCHARGE MEDICATIONS: He is being discharged home on oral prednisone taper as well as Omnicef 300 mg 2 times a day for 10 days. Otherwise, no change was made to his pre-admission home medications as dictated by Dr. Arroyo on his history and physical note dated September 09, 2018. HOSPITAL COURSE: Mr. Negro is a pleasant 53-year-old gentleman, who was admitted to [facility] for COPD exacerbation on September 09, 2018. Please refer to Dr. Arroyo's history and physical note dated September 09, 2018. He was treated with oxygen, steroids, bronchodilators, and antibiotics. He improved clinically and was maintaining good oxygen saturations on room air. He is being discharged home in a stable condition. Many thanks for allowing me to participate in your patient's care. Please feel free to contact me with any questions or concerns. DISCHARGE DESTINATION: Home. Total amount of time spent coordinating this discharge: 31 minutes. Job ID: [id number]
--- NOTE | 2018-09-14 11:42 | EKG ---
Test Reason : Blood Pressure : / mmHG Vent. Rate : 093 BPM Atrial Rate : 093 BPM P-R Int : 146 ms QRS Dur : 072 ms QT Int : 354 ms P-R-T Axes : 042 026 062 degrees QTc Int : 440 ms Normal sinus rhythm Nonspecific ST abnormality Abnormal ECG Confirmed by ZHEN WORTHINGTON ([id number]), photograph editor AYSE CHÁVEZ ([id number]) on 09/14/2018 11:42:22 AM Referred By: Confirmed By:ZHEN WORTHINGTON
== END 2018-09-09 16:17 | disposition home or self-care (01) ==
LOC: ERS 22:55 → INTOOBSV 09-09 03:12 → ERHOLD 09-09 03:12
PROVIDERS: ADMIT Internal Medicine; ATTEND Internal Medicine
DX: J44.1 Chronic obstructive pulmonary disease with (acute) exacerbation (principal); I25.10 Atherosclerotic heart disease of native coronary artery without angina pectoris; E78.5 Hyperlipidemia, unspecified; I10 Essential (primary) hypertension; E11.9 Type 2 diabetes mellitus without complications; E66.9 Obesity, unspecified; Z98.890 Other specified postprocedural states; Z87.891 Personal history of nicotine dependence; Z79.899 Other long term (current) drug therapy; Z79.4 Long term (current) use of insulin; Z79.01 Long term (current) use of anticoagulants
CPT/HCPCS: 71045; 71250; 80053; 82553; 82962; 83880; 84484; 85025; 93005; 94640 ×2; 94760; 96374; 96375; 99285; G0378; 36415; 36416; J1885; J1956; J2920; J2930; J7050; J7620

== ENCOUNTER 2018-09-30 10:23 | Outpatient (CLI) | payer MEDICARE ==
--- NOTE | 2018-09-30 11:47 | CT ---
CT OF THE NECK WITH IV CONTRAST: DATE: 09/30/2018. COMPARISON: None. HISTORY: Difficulty swallowing, dysphagia, hoarseness. TECHNIQUE: Axial CT imaging at 3 mm intervals provided from level of skull base through the lung apices with IV contrast. Coronal and sagittal reformatted imaging obtained. FINDINGS: The imaged paranasal sinuses and mastoid air cells are well aerated. The parotid glands and submandibular glands demonstrate no acute findings. The retroantral fat and t he parapharyngeal fat is clear bilaterally. Level of the tonsillar pillars, epiglottis and preepiglottic fat, hyoid bone, thyroid cartilage, and cricoid cartilage appear unremarkable. The thyroid gland and level of the glottis appear unremarkabl e as well. There is prominent superior mediastinal fat. There is mild atherosclerotic calcification of the aort ic arch. The visualized lung apices demonstrate no acute findings. There is anterior diskectomy and fusion hardware present at the C5-6 level. There is mild atherosclerotic calcification at the origin of bilateral internal carotid arteries. No lymphadenopathy is apparent within the neck. Review of the osseous structures no worrisome lytic or blastic bone lesion. Uncovertebral osteophyte formation with extension into the neural foramina noted bilaterally at C5-6. IMPRESSION: No acute findings. Incidental findings as described above. POS: SHAVONNE
[2018-09-30] MEDS ORDERED: ISOVUE-370 76%-LOCM 1 ML ONE (16:59)
== END 2018-09-30 10:24 | disposition home or self-care (01) ==
LOC: BICCT 10:23
PROVIDERS: ATTEND Otolaryngology Plastic Surgery within the Head & Neck
DX: R22.1 Localized swelling, mass and lump, neck (principal)
CPT/HCPCS: 70491; Q9966

== ENCOUNTER 2018-11-21 21:32 | Observation (INO) | payer MEDICARE ==
[2018-11-21 21:56] LABS: #Eosinphils 0.4 thou/uL (0.0-0.7); #Lymphocytes 1.9 thou/uL (1.20-3.40); #Monocytes 0.7 thou/uL (0.11-0.59); #Neutrophils 5.6 thou/uL (1.40-6.50); %Basophils 0.6 % (0.0-1.0); %Eosinophils 5.1 % (0.0-10.0); %Lymphocytes 21.5 % (21.0-51.0); %Neutrophils 64.9 % (42.0-75.0); Hemoglobin 10.9 g/dL (14.0-18.0); Mean Corpuscular HGB CONC 32.4 g/dL (32.0-36.0); Mean Corpuscular Hemoglobin 26.7 pg (27.0-31.0); Mean Corpuscular Volume 82.6 fL (78.0-98.0); Mean Platelet Volume 6.6 fL (7.4-10.4); Platelet Count 446 thou/uL (130-400); RBC Distribution Width 15.7 % (11.5-14.5); Red Blood Cell (RBC) Count 4.06 mill/uL (4.70-6.10); White Blood Cell (WBC) Count 8.7 thou/uL (4.8-10.8)
[2018-11-21 22:18] LABS: ALT (SGPT) 16 U/L (8-55); AST (SGOT) 16 U/L (5-34); Alkaline Phosphatase 54 U/L (40-150); Anion Gap 17 mmol/L (10-20); BUN (Urea Nitrogen) 11 mg/dL (8.4-25.7); Bilirubin, Total 0.2 mg/dL (0.2-1.2); Calc. Creatinine Clearance 0 mL/min (70-130); Calcium 9.2 mg/dL (7.8-10.44); Carbon Dioxide 29 mmol/L (22-29); Chloride 99 mmol/L (98-107); Estimated GFR-MDRD 57; Globulin 3.1 g/dL (2.4-3.5); Glucose 148 mg/dL (70-105); Potassium 3.6 mmol/L (3.5-5.1); Protein, Total 7.1 g/dL (6.0-8.3); Sodium 141 mmol/L (136-145)
--- NOTE | 2018-11-21 22:28 | RAD ---
CHEST ONE VIEW: 11/21/18 HISTORY: Cough and wheezing. COMPARISON: 09/08/18. FINDINGS: The cardiac silhouette is magnified by projection. Pulmonary vasculature upper limits of normal. Medi astinum is midline. Lobulation right hemidiaphragm is more apparent than on previous exams. No conflu ent air space consolidation or evidence of pneumothorax. IMPRESSION: No active cardiopulmonary abnormalities are demonstrated. POS: [facility]
[2018-11-21] MEDS ORDERED: Dexamethasone 10 MG/ML VIAL ONE (22:36)
[2018-11-21] MEDS ORDERED: Acetaminophen 500 MG TAB ONE (23:06)
[2018-11-21 23:13] LABS: CKMB 1.1 ng/mL (0-6.6)
[2018-11-21] MEDS ORDERED: Aspirin 325 MG TAB ONE (23:15)
[2018-11-21] MEDS ORDERED: Ondansetron PF 4 MG/2 ML Vial IVP PRN (23:46)
[2018-11-21] MEDS ORDERED: Ondansetron ODT 4 MG TAB PO PRN (23:46)
[2018-11-21] MEDS ORDERED: Acetaminophen 325 MG TAB PO PRN (23:46)
[2018-11-21] MEDS ORDERED: Bacteriostatic Water 30 ML VIAL FS PRN (23:53)
[2018-11-22 00:55] VITALS: BMI 45.1
[2018-11-22] MEDS: methylPREDNISolone Sod Succ 40 MG VIAL IVP SCH ×3 (01:10→12:19)
[2018-11-22] MEDS ORDERED: Dextrose 50% Abboject 50 ML SYRINGE SLOW IVP PRN (05:04)
[2018-11-22] MEDS ORDERED: Dextrose 5% in Water 1,000 ML IV PRN (05:04)
[2018-11-22 05:08] LABS: #Eosinphils 0.1 thou/uL (0.0-0.7); #Lymphocytes 0.8 thou/uL (1.20-3.40); #Monocytes 0.1 thou/uL (0.11-0.59); #Neutrophils 7.8 thou/uL (1.40-6.50); %Eosinophils 0.9 % (0.0-10.0); %Lymphocytes 9.3 % (21.0-51.0); %Monocytes 1.4 % (0.0-10.0); %Neutrophils 88.4 % (42.0-75.0); Hemoglobin 10.7 g/dL (14.0-18.0); Mean Corpuscular HGB CONC 32.2 g/dL (32.0-36.0); Mean Corpuscular Hemoglobin 26.9 pg (27.0-31.0); Mean Corpuscular Volume 83.3 fL (78.0-98.0); Mean Platelet Volume 6.9 fL (7.4-10.4); Platelet Count 414 thou/uL (130-400); RBC Distribution Width 15.9 % (11.5-14.5); Red Blood Cell (RBC) Count 3.99 mill/uL (4.70-6.10); White Blood Cell (WBC) Count 8.8 thou/uL (4.8-10.8)
[2018-11-22 05:30] LABS: Anion Gap 15 mmol/L (10-20); BUN (Urea Nitrogen) 13 mg/dL (8.4-25.7); Calc. Creatinine Clearance 126 mL/min (70-130); Calcium 9.2 mg/dL (7.8-10.44); Carbon Dioxide 28 mmol/L (22-29); Chloride 96 mmol/L (98-107); Estimated GFR-MDRD 57; Glucose 296 mg/dL (70-105); Potassium 3.9 mmol/L (3.5-5.1); Sodium 135 mmol/L (136-145)
[2018-11-22] MEDS: HumaLOG 300 UNITS/3 ML VIAL SC PRN ×2 (05:45→12:18)
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
[2018-11-22] MEDS ORDERED: Furosemide 80 MG TAB PO SCH (09:00)
[2018-11-22] MEDS ORDERED: Rosuvastatin 20 MG TAB PO SCH (09:00)
[2018-11-22] MEDS ORDERED: rOPINIRole HCl 1 MG TAB PO SCH (09:00)
[2018-11-22] MEDS ORDERED: Carvedilol 6.25 MG TAB PO SCH (09:00)
[2018-11-22] MEDS ORDERED: Apixaban 5 MG TAB PO SCH (09:00)
[2018-11-22 11:52] VITALS: BP 132/68; TEMP 97.6
[2018-11-22] MEDS ORDERED: Montelukast Sodium 10 mg Tablet PO SCH (21:00)
--- NOTE | 2018-11-23 05:19 | DIS ---
DATE OF ADMISSION: 11/21/2018 DATE OF DISCHARGE: 11/22/2018 ALLERGIES: NO KNOWN DRUG ALLERGIES. CHIEF COMPLAINT: Shortness of breath. FINAL DIAGNOSES: 1. Acute chronic obstructive pulmonary disease exacerbation, resolved. 2. Coronary artery disease with distal apical lesion, not amenable to intervention, preserved EF, stable. 3. History of PE. 4. Type 2 diabetes mellitus. 5. Obesity. 6. Obstructive sleep apnea. 7. Plaque psoriasis. PROCEDURES PERFORMED: None. LABORATORY RESULTS: White blood cell count 8.8, hemoglobin 10.7, hematocrit 33.2. Sodium 135, potassium 3.9, BUN 13, creatinine 1.3, glucose 148. Troponin 0.032, 0.030. BNP 35. IMAGING RESULTS: Chest x-ray, no active cardiopulmonary abnormalities are demonstrated. CONSULTATIONS: None. VITAL SIGNS: Blood pressure 132/68, pulse 90, respirations 20, O2 saturation 96% on room air. The patient is afebrile. HOSPITAL COURSE: The patient is a pleasant 53-year-old male with past medical history significant for COPD, coronary artery disease with preserved EF, obstructive sleep apnea, obesity, chronic renal insufficiency, likely secondary to diabetic nephropathy, and psoriasis, who presented to the hospital with a 3-day history of worsening shortness of breath and cough. He said that the cough was not productive, but he reported significant wheezing. He denied any fever, chills, nausea, or vomiting. He was admitted with acute COPD exacerbation. He was given IV Levaquin, IV steroids, and scheduled breathing treatments with resolution of all of his presenting symptoms. This morning, he is resting comfortably. His lungs are clear. He states that he is back at his baseline. His cough is much improved. PHYSICAL EXAMINATION: GENERAL: Awake and alert, comfortable, no respiratory distress. HEENT: Atraumatic and normocephalic. Eye movements intact. PERRLA. NECK: Supple, obese, no obvious JVD. RESPIRATORY: Regular respiratory rate and pattern. Clear to auscultation bilaterally. There are no rhonchi or wheezes or crackles present. CV: S1 and S2. Regular rate and rhythm. No appreciable murmurs, rubs or gallops. GI: Soft, nontender, normal bowel sounds, obese. PERIPHERAL VASCULAR: Lower extremities are warm and well perfused. MUSCULOSKELETAL: No joint effusion or swelling. NEUROLOGIC: Awake and alert. Cranial nerves 2 through 12 intact. Nonfocal. SKIN: The patient has plaques consistent with psoriasis on the anterior portion of his legs. CONDITION AT DISCHARGE: Stable. DISCHARGE MEDICATIONS: New medications will be levofloxacin 500 mg p.o. daily for the next 5 days along with Medrol Dosepak. He will continue his home medications which include; 1. Carvedilol 12.5 mg p.o. b.i.d. 2. Furosemide 80 mg tab daily. 3. Glipizide 5 mg tab daily. 4. Isosorbide mononitrate 30 mg tab daily. 5. Montelukast 10 mg tab daily. 6. Pantoprazole 40 mg daily. 7. Potassium chloride 20 mEq daily. 8. Ranexa 1000 mg p.o. b.i.d. 9. Ropinirole 1 mg tablet daily. 10. Rosuvastatin 20 mg tab daily. DISCHARGE DISPOSITION: Home. PLAN: The patient needs routine followup, both with his primary care physician and with a car dropper. The patient has been counseled on weight loss, risk factor modification, as well as to return to the ER if symptoms recur. The patient will be discharged home in good condition. All questions answered to the patient's satisfaction. Care discussed with Dr. Dorado, who agrees with the above. Job ID: [id number]
== END 2018-11-22 15:39 | disposition home or self-care (01) ==
LOC: ERS 21:32 → 2SW 23:15
PROVIDERS: ADMIT Hospitalist; ATTEND Hospitalist
DX: J44.1 Chronic obstructive pulmonary disease with (acute) exacerbation (principal); I25.10 Atherosclerotic heart disease of native coronary artery without angina pectoris; E11.9 Type 2 diabetes mellitus without complications; I50.9 Heart failure, unspecified; E78.5 Hyperlipidemia, unspecified; F17.210 Nicotine dependence, cigarettes, uncomplicated; G47.33 Obstructive sleep apnea (adult) (pediatric); L40.0 Psoriasis vulgaris; D64.9 Anemia, unspecified; K21.9 Gastro-esophageal reflux disease without esophagitis; E66.9 Obesity, unspecified; Z68.42 Body mass index [BMI] 45.0-49.9, adult; Z79.4 Long term (current) use of insulin; Z79.51 Long term (current) use of inhaled steroids; Z79.899 Other long term (current) drug therapy
CPT/HCPCS: 71045; 80048; 80053; 82553; 82962; 83880; 84484 ×2; 85025 ×2; 93005; 94640 ×3; 94760; 96365; 96375 ×2; 96376; 99285; G0378 ×2; 36415; 36416; 96374; J1100; J1956; J2920; J7620

== ENCOUNTER 2019-01-28 13:36 | Outpatient (CLI) | payer MEDICARE ==
--- NOTE | 2019-01-28 13:57 | RAD ---
RADIOGRAPH CHEST 2 VIEWS: 01/28/19 HISTORY: 53-year-old male with dyspnea. FINDINGS: There is no air space density, pulmonary edema, pleural effusion, pneumothorax, or cardiomegaly. IMPRESSION: No acute cardiopulmonary findings. jn [] POS: [facility]
== END 2019-01-28 13:37 | disposition home or self-care (01) ==
LOC: RAD 13:36
PROVIDERS: ATTEND Internal Medicine
DX: R06.00 Dyspnea, unspecified (principal)
CPT/HCPCS: 71046

== ENCOUNTER 2019-02-12 19:41 | Emergency (ER) | payer MEDICARE ==
[2019-02-12] MEDS ORDERED: Ketorolac Tromethamine 60 MG/2 ML VIAL ONE (20:54)
[2019-02-12] MEDS ORDERED: HYDROcodone/Acetaminophen 5/325 mg Tablet ONE (20:54)
[2019-02-13] MEDS ORDERED: ISOVUE-370 76%-LOCM 1 ML ONE (09:59)
--- NOTE | 2019-02-13 12:33 | CT ---
CT CHEST WITH IV CONTRAST CT ABDOMEN WITH IV CONTRAST CT PELVIS WITH IV CONTRAST CORONAL AND SAGITTAL REFORMATIONS OF THE THORACOLUMBAR SPINE: 02/12/19 HISTORY: Fall, chest and abdominal pain. FINDINGS: No mediastinal hematoma or intimal flap in the aorta is seen to suggest transection. No pleural or pe ricardial effusions are seen. No pneumothoraces or pulmonary contusions are identified. There are dep endent changes in the lung bases. The liver, spleen, pancreas, adrenal glands and kidneys are intact. Gallbladder and urinary bladder a lso appear intact. There is a 4 cm exophytic cyst arising from the anterior cortex of the left kidney . There is fatty infiltration of the liver. No free air or free fluid is seen in the abdomen or pelvi s. There are dependent changes without evidence of fracture or subluxation of the thoracolumbar spine . IMPRESSION: No CT evidence of acute intrathoracic or solid organ injury. The results of report given by Dr. Case Daniels. POS: [facility]
--- NOTE | 2019-02-13 13:21 | RAD ---
PA AND LATEARL VIEWS OF THE CHEST: 02/13/19 HISTORY: Fall with chest pain. FINDINGS: There is elevation of the right hemidiaphragm. The heart size is borderline. The lungs are expanded w ithout focal areas of consolidation, pneumothoraces or pleural effusions. There are postop changes in the lower cervical spine. No acute interval changes seen since 01/01/18. IMPRESSION: No acute process. POS: OFF
--- NOTE | 2019-02-15 17:11 | EKG ---
Test Reason : Blood Pressure : / mmHG Vent. Rate : 094 BPM Atrial Rate : 094 BPM P-R Int : 158 ms QRS Dur : 078 ms QT Int : 366 ms P-R-T Axes : 042 022 060 degrees QTc Int : 457 ms Normal sinus rhythm Normal ECG Confirmed by MICHELLE BOYD DO ([id number]), metropolitan editor AYSE CHÁVEZ ([id number] on 02/15/2019 5:11:08 PM Referred By: Confirmed By:MICHELLE BOYD DO
== END 2019-02-13 10:14 | disposition home or self-care (01) ==
LOC: ERS 19:41
DX: S20.219A Contusion of unspecified front wall of thorax, initial encounter (principal)
CPT/HCPCS: 71046; 71260; 74177; 93005; 96372; J1885; Q9966

== ENCOUNTER 2019-07-31 09:51 | Outpatient (CLI) | payer MEDICARE ==
--- NOTE | 2019-07-31 10:31 | RAD ---
PA AND LATERAL CHEST: Date: 07/31/19 HISTORY: Dyspnea. COMPARISON: 01/28/19. FINDINGS: Heart size is borderline. Mediastinal structures appear unremarkable. Lungs are clear of any infiltra hunter. There are arthritic changes of the spine and postop changes of the cervical spine. IMPRESSION: Stable chest. POS: [facility]
== END 2019-07-31 09:52 | disposition home or self-care (01) ==
LOC: RAD 09:51
PROVIDERS: ATTEND Internal Medicine
DX: R06.00 Dyspnea, unspecified (principal)
CPT/HCPCS: 71046

== ENCOUNTER 2020-01-26 22:58 | Emergency (ER) | payer MEDICARE ==
[2020-01-26] MEDS ORDERED: HYDROcodone/Acetaminophen 5/325 mg Tablet ONE (23:17)
--- NOTE | 2020-01-27 07:30 | RAD ---
RIGHT RIBS WITH PA CHEST: Date: 01/26/2020 HISTORY: Tripped and fell. COMPARISON: Chest radiograph dated 07/31/2019. FINDINGS: No acute displaced right-sided rib fracture. Right lung is clear. No pneumothorax. No effusion. Left lung is also clear. Cardiac silhouette and mediastinal contours are similar. IMPRESSION: No displaced right-sided rib fracture. POS: HOME
== END 2020-01-26 23:44 | disposition home or self-care (01) ==
LOC: ERS 22:58
DX: S20.211A Contusion of right front wall of thorax, initial encounter (principal); E11.9 Type 2 diabetes mellitus without complications; J44.9 Chronic obstructive pulmonary disease, unspecified; I11.0 Hypertensive heart disease with heart failure; I50.9 Heart failure, unspecified; F17.200 Nicotine dependence, unspecified, uncomplicated; Z79.899 Other long term (current) drug therapy; W01.0XXA Fall on same level from slipping, tripping and stumbling without subsequent striking against object, initial encounter

== ENCOUNTER 2020-09-10 19:00 | Outpatient (CLI) | payer MEDICARE | END 2020-09-10 19:01 | disposition home or self-care (01) | LOC: SLEEPLAB 19:00 | PROVIDERS: ATTEND Internal Medicine Critical Care Medicine | DX: G47.33 Obstructive sleep apnea (adult) (pediatric) (principal); G47.10 Hypersomnia, unspecified; I50.9 Heart failure, unspecified; J44.9 Chronic obstructive pulmonary disease, unspecified; G47.61 Periodic limb movement disorder | CPT/HCPCS: 95811 ==

== ENCOUNTER 2021-02-01 22:10 | Observation (INO) | payer MEDICARE ==
[2021-02-01] MEDS ORDERED: Meclizine HCl 25 MG TAB ONE (23:15)
[2021-02-01 23:39] LABS: #Basophils 0.1 thou/uL (0.0-0.2); #Eosinphils 0.3 thou/uL (0.0-0.7); #Lymphocytes 2.4 thou/uL (1.20-3.40); #Monocytes 0.7 thou/uL (0.11-0.59); #Neutrophils 6.8 thou/uL (1.40-6.50); %Basophils 0.8 % (0.0-1.0); %Eosinophils 2.5 % (0.0-10.0); %Lymphocytes 23.7 % (21.0-51.0); %Monocytes 6.5 % (0.0-10.0); %Neutrophils 66.5 % (42.0-75.0); Hemoglobin 13.7 g/dL (14.0-18.0); Mean Corpuscular HGB CONC 34.5 g/dL (32.0-36.0); Mean Corpuscular Hemoglobin 29.3 pg (27.0-31.0); Mean Platelet Volume 6.9 fL (7.4-10.4); Platelet Count 360 thou/uL (130-400); RBC Distribution Width 15.1 % (11.5-14.5); Red Blood Cell (RBC) Count 4.67 mill/uL (4.70-6.10); White Blood Cell (WBC) Count 10.2 thou/uL (4.8-10.8)
[2021-02-01 23:59] LABS: ALT (SGPT) 19 U/L (8-55); AST (SGOT) 13 U/L (5-34); Albumin 4.3 g/dL (3.5-5.0); Alkaline Phosphatase 68 U/L (40-110); Anion Gap 18 mmol/L (10-20); BUN (Urea Nitrogen) 27 mg/dL (8.4-25.7); Bilirubin, Total 0.2 mg/dL (0.2-1.2); Calc. Creatinine Clearance 0 mL/min (70-130); Calcium 9.3 mg/dL (7.8-10.44); Carbon Dioxide 25 mmol/L (22-29); Chloride 101 mmol/L (98-107); Globulin 3.2 g/dL (2.4-3.5); Glucose 114 mg/dL (70-105); Potassium 3.7 mmol/L (3.5-5.1); Protein, Total 7.5 g/dL (6.0-8.3); Sodium 140 mmol/L (136-145)
[2021-02-02 00:23] LABS: CKMB 1.3 ng/mL (0-6.6)
[2021-02-02 02:35] VITALS: BMI 40.6
[2021-02-02 02:59] LABS: Troponin I 0.062 ng/mL (< 0.028)
[2021-02-02 04:23] LABS: SARS-CoV-2 NAA Rapid Test Not Detected (NotDetected)
[2021-02-02] MEDS ORDERED: Ondansetron ODT 4 MG TAB PO PRN (04:46)
[2021-02-02] MEDS ORDERED: Acetaminophen 325 MG TAB PO PRN (04:46)
[2021-02-02] MEDS ORDERED: Ondansetron PF 4 MG/2 ML Vial IVP PRN (04:46)
[2021-02-02] MEDS ORDERED: Sodium Chloride 0.9% 1,000 ML IV SCH (05:00)
[2021-02-02 05:45] LABS: Troponin I 0.066 ng/mL (< 0.028)
[2021-02-02 05:46] LABS: Bilirubin Negative (Negative); Blood, Urine Negative (Negative); Glucose, Urine (Dipstick) Negative (Negative); Ketone, Urine Negative (Negative); Leukocyte Negative (Negative); Nitrite Negative (Negative); Protein, Urine (Dipstick) Negative (Neg-Trace); Urobilinogen 0.2 mg/dL (Less than 2)
[2021-02-02 05:47] LABS: Clarity Clear (Clear)
[2021-02-02 05:48] LABS: Bacteria/HPF None Seen HPF (None Seen); RBC/HPF 0-3 HPF (0-3); Squamous Epithelial None Seen HPF (0-3); WBC/HPF 0-3 HPF (0-3)
[2021-02-02] MEDS ORDERED: Dextrose 50% Abboject 50 ML SYRINGE SLOW IVP PRN (06:00)
[2021-02-02] MEDS ORDERED: Dextrose 5% in Water 1,000 ML IV PRN (06:00)
[2021-02-02] MEDS ORDERED: HumaLOG 300 UNITS/3 ML VIAL SC PRN ×2 (06:00)
[2021-02-02] MEDS: Carvedilol 6.25 MG TAB PO SCH ×2 (07:49→10:22)
[2021-02-02] MEDS: Heparin 5,000 UNITS/ML VIAL SC SCH ×2 (07:50→10:21)
[2021-02-02] MEDS ORDERED: Aspirin 325 MG TAB PO SCH (09:00)
[2021-02-02] MEDS ORDERED: Enoxaparin Sodium 40 MG/0.4 ML SYRINGE SC SCH (09:00)
[2021-02-02] MEDS ORDERED: Furosemide 80 MG TAB PO SCH (09:00)
[2021-02-02 09:02] LABS: #Basophils 0.1 thou/uL (0.0-0.2); #Eosinphils 0.3 thou/uL (0.0-0.7); #Lymphocytes 2.7 thou/uL (1.20-3.40); #Monocytes 0.6 thou/uL (0.11-0.59); #Neutrophils 5.4 thou/uL (1.40-6.50); %Basophils 0.8 % (0.0-1.0); %Eosinophils 2.8 % (0.0-10.0); %Lymphocytes 30.1 % (21.0-51.0); %Monocytes 7.1 % (0.0-10.0); %Neutrophils 59.3 % (42.0-75.0); Hemoglobin 12.7 g/dL (14.0-18.0); Mean Corpuscular HGB CONC 34.5 g/dL (32.0-36.0); Mean Corpuscular Hemoglobin 29.8 pg (27.0-31.0); Mean Corpuscular Volume 86.4 fL (78.0-98.0); Mean Platelet Volume 7.2 fL (7.4-10.4); Platelet Count 289 thou/uL (130-400); RBC Distribution Width 15.4 % (11.5-14.5); Red Blood Cell (RBC) Count 4.25 mill/uL (4.70-6.10); White Blood Cell (WBC) Count 9.1 thou/uL (4.8-10.8)
[2021-02-02 09:21] LABS: Anion Gap 10 mmol/L (10-20); BUN (Urea Nitrogen) 22 mg/dL (8.4-25.7); Calc. Creatinine Clearance 110 mL/min (70-130); Calcium 8.4 mg/dL (7.8-10.44); Carbon Dioxide 27 mmol/L (22-29); Chloride 102 mmol/L (98-107); Glucose 113 mg/dL (70-105); Potassium 3.3 mmol/L (3.5-5.1); Sodium 136 mmol/L (136-145)
[2021-02-02] MEDS ORDERED: Potassium Chloride 20 MEQ TAB PO SCH (11:00)
[2021-02-02] MEDS ORDERED: Carbamide Peroxide 6.5% Otic Drops 15 ml Bottle EA EAR SCH (11:08)
[2021-02-02 19:32] VITALS: TEMP 97.7
[2021-02-02 19:45] VITALS: BP 163/90
[2021-02-02] MEDS ORDERED: rOPINIRole HCl 1 MG TAB PO SCH (21:00)
[2021-02-02] MEDS ORDERED: Atorvastatin Calcium 20 MG TAB PO SCH (21:00)
== END 2021-02-02 20:08 | disposition home or self-care (01) ==
LOC: ERS 22:10 → 2SW 22:13 → UNDOADMOB 02-02 01:22 → UNDODISOB 02-02 20:08
PROVIDERS: ADMIT Student in an Organized Health Care Education/Training Program; ATTEND Internal Medicine
DX: R42 Dizziness and giddiness (principal); I13.0 Hypertensive heart and chronic kidney disease with heart failure and stage 1 through stage 4 chronic kidney disease, or unspecified chronic kidney disease; E11.22 Type 2 diabetes mellitus with diabetic chronic kidney disease; N18.9 Chronic kidney disease, unspecified; I50.9 Heart failure, unspecified; N17.9 Acute kidney failure, unspecified; I25.10 Atherosclerotic heart disease of native coronary artery without angina pectoris; R77.8 Other specified abnormalities of plasma proteins; J44.9 Chronic obstructive pulmonary disease, unspecified; L40.9 Psoriasis, unspecified; E78.5 Hyperlipidemia, unspecified; I08.1 Rheumatic disorders of both mitral and tricuspid valves; Z79.84 Long term (current) use of oral hypoglycemic drugs; Z79.899 Other long term (current) drug therapy; Z20.822 Contact with and (suspected) exposure to COVID-19
CPT/HCPCS: 71045; 80048; 80053; 81001; 82553; 82962 ×2; 84484 ×3; 85025 ×2; 93005; 93306; 93880; 96372; 97139; 99285; G0378 ×2; U0002; U0005; 36415; 36416; J1644

== ENCOUNTER 2021-05-04 12:36 | Observation (INO) | payer MEDICARE ==
[~2021-05-04 12:36] MED LIST changes: -ISOVUE-370 76%-LOCM 1 ML ONE; +Iopamidol-370 76% 500 ML 1 ML ONE
[2021-05-04 13:39] LABS: #Basophils 0.1 thou/uL (0.0-0.2); #Eosinphils 0.2 thou/uL (0.0-0.7); #Lymphocytes 1.6 thou/uL (1.20-3.40); #Monocytes 0.8 thou/uL (0.11-0.59); #Neutrophils 12.6 thou/uL (1.40-6.50); %Basophils 0.6 % (0.0-1.0); %Eosinophils 1.2 % (0.0-10.0); %Lymphocytes 10.4 % (21.0-51.0); %Neutrophils 82.9 % (42.0-75.0); Hemoglobin 14.3 g/dL (14.0-18.0); Mean Corpuscular HGB CONC 33.3 g/dL (32.0-36.0); Mean Corpuscular Volume 89.8 fL (78.0-98.0); Mean Platelet Volume 6.7 fL (7.4-10.4); Platelet Count 415 thou/uL (130-400); RBC Distribution Width 14.8 % (11.5-14.5); Red Blood Cell (RBC) Count 4.76 mill/uL (4.70-6.10); White Blood Cell (WBC) Count 15.2 thou/uL (4.8-10.8)
[2021-05-04 14:13] LABS: ALT (SGPT) 19 U/L (8-55); AST (SGOT) 16 U/L (5-34); Albumin 4.2 g/dL (3.5-5.0); Alkaline Phosphatase 72 U/L (40-110); Anion Gap 15 mmol/L (10-20); BUN (Urea Nitrogen) 14 mg/dL (8.4-25.7); Bilirubin, Total 0.3 mg/dL (0.2-1.2); Calc. Creatinine Clearance 0 mL/min (70-130); Calcium 9.4 mg/dL (7.8-10.44); Carbon Dioxide 28 mmol/L (22-29); Chloride 101 mmol/L (98-107); Globulin 3.7 g/dL (2.4-3.5); Glucose 181 mg/dL (70-105); Potassium 3.6 mmol/L (3.5-5.1); Protein, Total 7.9 g/dL (6.0-8.3); Sodium 140 mmol/L (136-145)
[2021-05-04] MEDS ORDERED: Labetalol HCl 100 MG/20 ML VIAL ONE (15:40)
[2021-05-04] MEDS ORDERED: Nitroglycerin 2% Ointment 1 INCH/1 GM Packet ONE (17:09)
[2021-05-04 19:03] LABS: CKMB 0.8 ng/mL (0-6.6)
[2021-05-04] MEDS ORDERED: Morphine 4 MG/ML VIAL SLOW IVP SCH (19:15)
[2021-05-04] MEDS ORDERED: Morphine 4 MG/ML VIAL ONE (19:42)
[2021-05-04] MEDS ORDERED: Aspirin Chewable 81 MG TAB ONE (19:42)
[2021-05-04] MEDS ORDERED: Acetaminophen 325 MG TAB PO PRN (19:49)
[2021-05-04] MEDS ORDERED: Ondansetron PF 4 MG/2 ML Vial IVP PRN (19:49)
[2021-05-04] MEDS ORDERED: Morphine 2 MG/ML VIAL SLOW IVP PRN (19:55)
[2021-05-04] MEDS ORDERED: hydrALAZINE 20 MG/ML VIAL SLOW IVP PRN (19:55)
[2021-05-04] MEDS ORDERED: Aspirin 325 MG TAB PO SCH (20:00)
[2021-05-04] MEDS ORDERED: HumaLOG 300 UNITS/3 ML VIAL SC PRN (20:24)
[2021-05-04] MEDS ORDERED: Enoxaparin Sodium 120 MG/0.8 ML SYRINGE SC SCH (21:00)
[2021-05-04] MEDS ORDERED: rOPINIRole HCl 2 MG TAB PO SCH (21:00)
[2021-05-04] MEDS ORDERED: Atorvastatin Calcium 20 MG TAB PO SCH (21:00)
[2021-05-04] MEDS ORDERED: Furosemide 80 MG TAB PO PRN (21:00)
[2021-05-04 22:06] LABS: CKMB 0.9 ng/mL (0-6.6)
[2021-05-04] MEDS ORDERED: Carvedilol 25 MG TAB PO SCH (22:30)
[2021-05-04 23:43] LABS: Troponin I 0.043 ng/mL (< 0.028)
[2021-05-05] MEDS: Nitroglycerin 2% Ointment 1 INCH/1 GM Packet TOP SCH ×2 (02:00→10:18)
[2021-05-05] MEDS ORDERED: Morphine 2 MG/ML VIAL ONE (03:54)
[2021-05-05 04:25] LABS: #Eosinphils 0.1 thou/uL (0.0-0.7); #Lymphocytes 2.5 thou/uL (1.20-3.40); #Monocytes 1.1 thou/uL (0.11-0.59); #Neutrophils 8.2 thou/uL (1.40-6.50); %Basophils 0.3 % (0.0-1.0); %Eosinophils 1.2 % (0.0-10.0); %Monocytes 9.3 % (0.0-10.0); %Neutrophils 68.2 % (42.0-75.0); Hemoglobin 12.7 g/dL (14.0-18.0); Mean Corpuscular HGB CONC 31.9 g/dL (32.0-36.0); Mean Corpuscular Hemoglobin 28.6 pg (27.0-31.0); Mean Corpuscular Volume 89.6 fL (78.0-98.0); Mean Platelet Volume 6.6 fL (7.4-10.4); Platelet Count 340 thou/uL (130-400); RBC Distribution Width 14.8 % (11.5-14.5); Red Blood Cell (RBC) Count 4.46 mill/uL (4.70-6.10)
[2021-05-05 04:46] LABS: Anion Gap 13 mmol/L (10-20); BUN (Urea Nitrogen) 16 mg/dL (8.4-25.7); Calc. Creatinine Clearance 0 mL/min (70-130); Calcium 8.6 mg/dL (7.8-10.44); Carbon Dioxide 28 mmol/L (22-29); Cardiac Risk 5.5 (Less than 4.5); Chloride 98 mmol/L (98-107); Cholesterol 180 mg/dl (< 200 Desired); Glucose 150 mg/dL (70-105); HDL Cholesterol 33 mg/dL (>60 Neg Risk); LDL Cholesterol, Calculated 120 mg/dL; Potassium 3.4 mmol/L (3.5-5.1); Sodium 136 mmol/L (136-145); Triglycerides 137 mg/dL (Less than 150)
[2021-05-05 04:47] VITALS: BMI 40.6
[2021-05-05] MEDS ORDERED: Sodium Chloride 0.9% 1,000 ML IV SCH (07:00)
[2021-05-05] MEDS ORDERED: Carvedilol 25 MG TAB PO SCH (08:00)
[2021-05-05] MEDS ORDERED: metFORMIN 500 MG TAB PO SCH (08:00)
[2021-05-05] MEDS ORDERED: Carvedilol 6.25 MG TAB PO SCH (08:00)
[2021-05-05] MEDS ORDERED: Clopidogrel Bisulfate 75 MG TAB PO SCH (09:00)
[2021-05-05] MEDS ORDERED: Aspirin Chewable 81 MG TAB PO SCH (09:00)
[2021-05-05] MEDS ORDERED: Lisinopril 5 MG TAB PO SCH (09:00)
[2021-05-05] MEDS ORDERED: Clopidogrel Bisulfate 75 MG TAB ONE (09:58)
[2021-05-05] MEDS ORDERED: Aspirin 81 mg Enteric Coated Tablet ONE (09:58)
[2021-05-05 10:19] VITALS: BP 129/81
[2021-05-05 12:09] LABS: SARS-CoV-2 PCR by NAA Not Detected (NotDetected)
== END 2021-05-05 12:00 | disposition home or self-care (01) ==
LOC: ERS 12:36 → ERHOLD 17:52 → PACU-TCU 05-05 10:53
PROVIDERS: ADMIT Family Medicine; ATTEND Family Medicine
DX: R07.89 Other chest pain (principal); I13.0 Hypertensive heart and chronic kidney disease with heart failure and stage 1 through stage 4 chronic kidney disease, or unspecified chronic kidney disease; E11.22 Type 2 diabetes mellitus with diabetic chronic kidney disease; N18.30 Chronic kidney disease, stage 3 unspecified; I50.30 Unspecified diastolic (congestive) heart failure; R77.8 Other specified abnormalities of plasma proteins; J44.9 Chronic obstructive pulmonary disease, unspecified; L40.9 Psoriasis, unspecified; E78.5 Hyperlipidemia, unspecified; I25.10 Atherosclerotic heart disease of native coronary artery without angina pectoris; R91.1 Solitary pulmonary nodule; R16.0 Hepatomegaly, not elsewhere classified; N28.1 Cyst of kidney, acquired; E66.9 Obesity, unspecified; Z68.41 Body mass index [BMI] 40.0-44.9, adult; Z87.891 Personal history of nicotine dependence; Z79.84 Long term (current) use of oral hypoglycemic drugs; Z79.899 Other long term (current) drug therapy; Z20.822 Contact with and (suspected) exposure to COVID-19
CPT/HCPCS: 71046; 71275; 74174; 80048; 80053; 80061; 82553; 84484 ×2; 85025 ×2; 93005; 96372; 96375; 96376; 99285; G0378 ×2; J2270; U0003; U0005; 36415; J1650; Q9967

== ENCOUNTER 2021-08-09 22:58 | Observation (INO) | payer MEDICARE ==
[2021-08-10 03:00] VITALS: BMI 40.6
[2021-08-10] MEDS ORDERED: Ondansetron PF 4 MG/2 ML Vial IVP PRN (03:01)
[2021-08-10] MEDS ORDERED: Acetaminophen 325 MG TAB PO PRN (03:01)
[2021-08-10] MEDS ORDERED: Nitroglycerin 0.4 MG TAB (25 Tab Bottle) SL PRN (03:01)
[2021-08-10] MEDS ORDERED: Dextrose 50% Abboject 50 ML SYRINGE SLOW IVP PRN (03:04)
[2021-08-10] MEDS ORDERED: Dextrose 5% in Water 1,000 ML IV PRN (03:04)
[2021-08-10] MEDS ORDERED: HumaLOG 300 UNITS/3 ML VIAL SC PRN ×2 (03:04)
[2021-08-10] MEDS: Sodium Chloride 0.9% 1,000 ML IV SCH ×2 (05:34→16:57)
[2021-08-10 05:46] LABS: #Basophils 0.1 thou/uL (0.0-0.2); #Eosinphils 0.2 thou/uL (0.0-0.7); #Lymphocytes 2.1 thou/uL (1.20-3.40); #Monocytes 0.7 thou/uL (0.11-0.59); #Neutrophils 8.2 thou/uL (1.40-6.50); %Basophils 0.6 % (0.0-1.0); %Eosinophils 1.8 % (0.0-10.0); %Lymphocytes 18.4 % (21.0-51.0); %Neutrophils 73.3 % (42.0-75.0); Hemoglobin 12.3 g/dL (14.0-18.0); Mean Corpuscular HGB CONC 32.7 g/dL (32.0-36.0); Mean Corpuscular Hemoglobin 28.9 pg (27.0-31.0); Mean Corpuscular Volume 88.4 fL (78.0-98.0); Mean Platelet Volume 6.6 fL (7.4-10.4); Platelet Count 350 thou/uL (130-400); RBC Distribution Width 13.5 % (11.5-14.5); Red Blood Cell (RBC) Count 4.26 mill/uL (4.70-6.10); White Blood Cell (WBC) Count 11.1 thou/uL (4.8-10.8)
[2021-08-10 06:12] LABS: Troponin I 0.037 ng/mL (< 0.028)
[2021-08-10 06:19] LABS: Magnesium 1.9 mg/dL (1.6-2.6)
[2021-08-10 06:26] LABS: Anion Gap 13 mmol/L (10-20); BUN (Urea Nitrogen) 20 mg/dL (8.4-25.7); Calc. Creatinine Clearance 95 mL/min (70-130); Calcium 8.8 mg/dL (7.8-10.44); Carbon Dioxide 22 mmol/L (22-29); Chloride 106 mmol/L (98-107); Glucose 120 mg/dL (70-105); Magnesium 1.9 mg/dL (1.6-2.6); Potassium 4.3 mmol/L (3.5-5.1); Sodium 137 mmol/L (136-145)
[2021-08-10] MEDS ORDERED: Ondansetron ODT 4 MG TAB PO PRN (07:50)
[2021-08-10] MEDS ORDERED: Zolpidem Tartrate 5 MG TAB PO PRN (07:50)
[2021-08-10] MEDS ORDERED: Loratadine 10 MG TAB PO PRN (07:50)
[2021-08-10] MEDS ORDERED: Bisacodyl 5 MG TAB PO PRN (07:50)
[2021-08-10] MEDS ORDERED: Senokot S 8.6-50 MG TAB PO PRN (07:50)
[2021-08-10] MEDS ORDERED: Loperamide HCl 2 MG CAP PO PRN (07:50)
[2021-08-10] MEDS ORDERED: Cepastat Lozenges 1 LOZ PO PRN (07:50)
[2021-08-10] MEDS ORDERED: hydrALAZINE 20 MG/ML VIAL SLOW IVP PRN (07:50)
[2021-08-10] MEDS ORDERED: Sodium Chloride 0.65% Nasal 44 ML BOT EA NARE PRN (07:50)
[2021-08-10] MEDS ORDERED: Calcium Carbonate 500 MG ChewTAB PO PRN (07:50)
[2021-08-10] MEDS ORDERED: GUAIFENESIN SF SOLN 200 MG/10 ML UDCUP PO PRN (07:50)
[2021-08-10] MEDS ORDERED: HYDROcodone/Acetaminophen 5/325 mg Tablet PO PRN (07:50)
[2021-08-10] MEDS: Montelukast Sodium 10 mg Tablet PO SCH (09:23)
[2021-08-10] MEDS: Enoxaparin Sodium 40 MG/0.4 ML SYRINGE SC SCH (09:23)
[2021-08-10] MEDS: Aspirin 81 mg Enteric Coated Tablet PO SCH (09:23)
[2021-08-10] MEDS: Ferrous Sulfate 325 MG TAB PO SCH ×2 (09:23→21:01)
[2021-08-10 11:14] LABS: Troponin I 0.038 ng/mL (< 0.028)
[2021-08-10 12:47] LABS: Bilirubin Negative (Negative); Blood, Urine Negative (Negative); Clarity Clear (Clear); Glucose, Urine (Dipstick) Normal (Negative); Ketone, Urine Negative (Negative); Leukocyte Negative Leu/uL (Negative); Nitrite Negative (Negative); Protein, Urine (Dipstick) 20 mg/dL (Neg-Trace); Specific Gravity, Urine 1.026 (1.002-1.036); Urobilinogen Normal mg/dL (Less than 2); pH, Urine 5.5 (5.0-9.0)
[2021-08-10] MEDS: Mometasone 200 MCG/Formoterol 5 MCG 120 PUFF INHALER INH SCH (19:02)
[2021-08-10] MEDS ORDERED: Atorvastatin Calcium 20 MG TAB PO SCH (21:00)
[2021-08-10] MEDS ORDERED: rOPINIRole HCl 1 MG TAB PO SCH (21:00)
[2021-08-11 04:29] LABS: #Eosinphils 0.2 thou/uL (0.0-0.7); #Lymphocytes 1.8 thou/uL (1.20-3.40); #Monocytes 0.5 thou/uL (0.11-0.59); #Neutrophils 4.7 thou/uL (1.40-6.50); %Basophils 0.4 % (0.0-1.0); %Eosinophils 2.4 % (0.0-10.0); %Lymphocytes 24.8 % (21.0-51.0); %Monocytes 7.1 % (0.0-10.0); %Neutrophils 65.3 % (42.0-75.0); Hemoglobin 10.9 g/dL (14.0-18.0); Mean Corpuscular Hemoglobin 30.2 pg (27.0-31.0); Mean Corpuscular Volume 88.8 fL (78.0-98.0); Mean Platelet Volume 6.6 fL (7.4-10.4); Platelet Count 249 thou/uL (130-400); RBC Distribution Width 13.5 % (11.5-14.5); White Blood Cell (WBC) Count 7.2 thou/uL (4.8-10.8)
[2021-08-11] MEDS: Sodium Chloride 0.9% 1,000 ML IV SCH (05:35)
[2021-08-11] MEDS: Mometasone 200 MCG/Formoterol 5 MCG 120 PUFF INHALER INH SCH (06:48)
[2021-08-11] MEDS ORDERED: metFORMIN 500 MG TAB PO SCH (08:00)
[2021-08-11] MEDS ORDERED: Carvedilol 25 MG TAB PO SCH ×4 (09:00→17:00)
[2021-08-11] MEDS ORDERED: Lisinopril 5 MG TAB PO SCH (09:00)
[2021-08-11] MEDS: Aspirin 81 mg Enteric Coated Tablet PO SCH (09:01)
[2021-08-11] MEDS: Ferrous Sulfate 325 MG TAB PO SCH (09:02)
[2021-08-11] MEDS: Enoxaparin Sodium 40 MG/0.4 ML SYRINGE SC SCH (09:03)
[2021-08-11] MEDS: Montelukast Sodium 10 mg Tablet PO SCH (09:03)
[2021-08-11 09:43] LABS: Albumin 3.9 g/dL (3.5-5.0)
[2021-08-11 09:44] LABS: Chloride 105 mmol/L (98-107); Potassium 3.7 mmol/L (3.5-5.1); Sodium 136 mmol/L (136-145)
[2021-08-11 09:45] LABS: Calcium 8.9 mg/dL (7.8-10.44); Glucose 161 mg/dL (70-105)
[2021-08-11 09:46] LABS: Protein, Total 6.9 g/dL (6.0-8.3)
[2021-08-11 09:47] LABS: Anion Gap 13 mmol/L (10-20); Bilirubin, Total 0.5 mg/dL (0.2-1.2); Carbon Dioxide 22 mmol/L (22-29)
[2021-08-11 09:48] LABS: Alkaline Phosphatase 70 U/L (40-110)
[2021-08-11 09:49] LABS: Calc. Creatinine Clearance 111 mL/min (70-130)
[2021-08-11 09:50] LABS: BUN (Urea Nitrogen) 14 mg/dL (8.4-25.7)
[2021-08-11 09:51] LABS: ALT (SGPT) 14 U/L (8-55); AST (SGOT) 12 U/L (5-34); Magnesium 1.9 mg/dL (1.6-2.6)
[2021-08-11 11:51] VITALS: BP 139/74; TEMP 98.1
== END 2021-08-11 12:15 | disposition home or self-care (01) ==
LOC: 2NO 22:58
PROVIDERS: ADMIT Internal Medicine; ATTEND Internal Medicine
DX: I95.1 Orthostatic hypotension (principal); I13.0 Hypertensive heart and chronic kidney disease with heart failure and stage 1 through stage 4 chronic kidney disease, or unspecified chronic kidney disease; E11.22 Type 2 diabetes mellitus with diabetic chronic kidney disease; N18.2 Chronic kidney disease, stage 2 (mild); I50.32 Chronic diastolic (congestive) heart failure; D63.1 Anemia in chronic kidney disease; R77.8 Other specified abnormalities of plasma proteins; I65.22 Occlusion and stenosis of left carotid artery; I25.10 Atherosclerotic heart disease of native coronary artery without angina pectoris; J44.9 Chronic obstructive pulmonary disease, unspecified; G47.33 Obstructive sleep apnea (adult) (pediatric); E78.5 Hyperlipidemia, unspecified; L40.9 Psoriasis, unspecified; F17.210 Nicotine dependence, cigarettes, uncomplicated; Z86.711 Personal history of pulmonary embolism; Z79.82 Long term (current) use of aspirin; Z79.84 Long term (current) use of oral hypoglycemic drugs; Z79.899 Other long term (current) drug therapy
CPT/HCPCS: 36415; 36416; 80048; 80053; 81003; 82533; 83735; 84100; 84443; 84484; 85025; 94640; 94760; 96372; 96374; G0378; J0360; J1650; J7050; J7620

== ENCOUNTER 2021-08-17 12:51 | Inpatient (IN) | payer MEDICARE ==
[2021-08-17 14:04] LABS: #Eosinphils 0.2 thou/uL (0.0-0.7); #Monocytes 0.6 thou/uL (0.11-0.59); #Neutrophils 4.8 thou/uL (1.40-6.50); %Basophils 0.5 % (0.0-1.0); %Eosinophils 3.1 % (0.0-10.0); %Lymphocytes 15.2 % (21.0-51.0); %Monocytes 9.3 % (0.0-10.0); %Neutrophils 71.8 % (42.0-75.0); Hemoglobin 14.5 g/dL (14.0-18.0); Mean Corpuscular HGB CONC 33.7 g/dL (32.0-36.0); Mean Corpuscular Hemoglobin 29.5 pg (27.0-31.0); Mean Corpuscular Volume 87.7 fL (78.0-98.0); Mean Platelet Volume 6.6 fL (7.4-10.4); Platelet Count 309 thou/uL (130-400); RBC Distribution Width 13.5 % (11.5-14.5); White Blood Cell (WBC) Count 6.7 thou/uL (4.8-10.8)
[2021-08-17 14:24] LABS: ALT (SGPT) 19 U/L (8-55); AST (SGOT) 15 U/L (5-34); Albumin 4.5 g/dL (3.5-5.0); Alkaline Phosphatase 81 U/L (40-110); Anion Gap 14 mmol/L (10-20); BUN (Urea Nitrogen) 12 mg/dL (8.4-25.7); Bilirubin, Total 0.3 mg/dL (0.2-1.2); Calc. Creatinine Clearance 0 mL/min (70-130); Calcium 9.2 mg/dL (7.8-10.44); Carbon Dioxide 29 mmol/L (22-29); Chloride 101 mmol/L (98-107); Globulin 3.2 g/dL (2.4-3.5); Glucose 144 mg/dL (70-105); Protein, Total 7.7 g/dL (6.0-8.3); Sodium 140 mmol/L (136-145)
[2021-08-17 14:49] LABS: CKMB 2.2 ng/mL (0-6.6)
[2021-08-17] MEDS ORDERED: Nitroglycerin 2% Ointment 1 INCH/1 GM Packet ONE (15:22)
[2021-08-17] MEDS ORDERED: Meclizine HCl 25 MG TAB ONE (15:22)
[2021-08-17] MEDS ORDERED: Aspirin 325 MG TAB ONE (16:44)
[2021-08-17] MEDS ORDERED: hydrALAZINE 20 MG/ML VIAL ONE (16:44)
[2021-08-17] MEDS ORDERED: Dextrose 50% Abboject 50 ML SYRINGE SLOW IVP PRN (17:31)
[2021-08-17] MEDS ORDERED: Dextrose 5% in Water 1,000 ML IV PRN (17:31)
[2021-08-17] MEDS ORDERED: hydrALAZINE 20 MG/ML VIAL SLOW IVP PRN (17:36)
[2021-08-17 18:59] LABS: SARS-CoV-2 NAA Rapid Test Not Detected (NotDetected)
[2021-08-17 19:44] VITALS: BMI 40.8
[2021-08-17] MEDS: Heparin 5,000 UNITS/ML VIAL SC SCH (20:31)
[2021-08-17] MEDS: Albuterol Sulfate 2.5 mg/3 ml Neb NEB PRN (20:42)
[2021-08-17] MEDS ORDERED: Melatonin 3 MG TAB PO SCH (20:45)
[2021-08-17 20:58] LABS: Troponin I 0.045 ng/mL (< 0.028)
[2021-08-17] MEDS: methylPREDNISolone Sod Succ 40 MG VIAL IVP SCH (21:37)
[2021-08-17] MEDS: HumaLOG 300 UNITS/3 ML VIAL SC PRN (21:38)
[2021-08-18 05:20] LABS: #Lymphocytes 0.7 thou/uL (1.20-3.40); #Monocytes 0.1 thou/uL (0.11-0.59); #Neutrophils 5.7 thou/uL (1.40-6.50); %Basophils 0.2 % (0.0-1.0); %Eosinophils 0.4 % (0.0-10.0); %Lymphocytes 10.7 % (21.0-51.0); %Monocytes 1.3 % (0.0-10.0); %Neutrophils 87.5 % (42.0-75.0); Hemoglobin 14.2 g/dL (14.0-18.0); Mean Corpuscular HGB CONC 33.8 g/dL (32.0-36.0); Mean Corpuscular Hemoglobin 29.6 pg (27.0-31.0); Mean Corpuscular Volume 87.5 fL (78.0-98.0); Platelet Count 318 thou/uL (130-400); RBC Distribution Width 13.4 % (11.5-14.5); White Blood Cell (WBC) Count 6.5 thou/uL (4.8-10.8)
[2021-08-18 05:43] LABS: Anion Gap 17 mmol/L (10-20); BUN (Urea Nitrogen) 15 mg/dL (8.4-25.7); Calc. Creatinine Clearance 95 mL/min (70-130); Calcium 9.3 mg/dL (7.8-10.44); Carbon Dioxide 23 mmol/L (22-29); Chloride 98 mmol/L (98-107); Glucose 281 mg/dL (70-105); Potassium 3.9 mmol/L (3.5-5.1); Sodium 134 mmol/L (136-145)
[2021-08-18] MEDS: HumaLOG 300 UNITS/3 ML VIAL SC PRN ×4 (06:14→20:10)
[2021-08-18] MEDS: methylPREDNISolone Sod Succ 40 MG VIAL IVP SCH (07:00)
[2021-08-18] MEDS: Heparin 5,000 UNITS/ML VIAL SC SCH ×3 (08:25→20:03)
[2021-08-18] MEDS ORDERED: Aspirin 325 mg Enteric Coated Tablet PO SCH (09:45)
[2021-08-18] MEDS ORDERED: Amlodipine 5 MG TAB PO SCH ×2 (10:15→14:00)
[2021-08-18] MEDS ORDERED: Meclizine HCl 25 MG TAB PO PRN (11:14)
[2021-08-18] MEDS ORDERED: Carbamide Peroxide 6.5% Otic Drops 15 ml Bottle EA EAR SCH (11:45)
[2021-08-18] MEDS ORDERED: hydrALAZINE 20 MG/ML VIAL SLOW IVP PRN (15:19)
[2021-08-18] MEDS ORDERED: rOPINIRole HCl 0.25 MG TAB PO SCH (15:30)
[2021-08-18] MEDS ORDERED: hydrALAZINE 25 MG TAB PO PRN (16:10)
[2021-08-18] MEDS ORDERED: Clopidogrel Bisulfate 75 MG TAB PO SCH (17:00)
[2021-08-18] MEDS: rOPINIRole HCl 0.25 MG TAB PO SCH (20:04)
[2021-08-18] MEDS: Carbamide Peroxide 6.5% Otic Drops 15 ml Bottle EA EAR SCH (20:04)
[2021-08-18] MEDS ORDERED: Atorvastatin Calcium 40 MG TAB PO SCH (21:00)
[2021-08-19 05:46] LABS: Cardiac Risk 6.2 (Less than 4.5)
[2021-08-19] MEDS: Albuterol Sulfate 2.5 mg/3 ml Neb NEB PRN (06:31)
[2021-08-19] MEDS: HumaLOG 300 UNITS/3 ML VIAL SC PRN (06:31)
[2021-08-19] MEDS ORDERED: Loratadine 10 MG TAB PO PRN (07:52)
[2021-08-19] MEDS: Carbamide Peroxide 6.5% Otic Drops 15 ml Bottle EA EAR SCH (08:59)
[2021-08-19] MEDS ORDERED: Clopidogrel Bisulfate 75 MG TAB PO SCH (09:00)
[2021-08-19] MEDS ORDERED: Montelukast Sodium 10 mg Tablet PO SCH (09:00)
[2021-08-19] MEDS ORDERED: Aspirin 81 mg Enteric Coated Tablet PO SCH (09:00)
[2021-08-19] MEDS ORDERED: Amlodipine 10 MG TAB PO SCH (09:00)
[2021-08-19] MEDS ORDERED: Carvedilol 25 MG TAB PO SCH (09:00)
[2021-08-19] MEDS: Heparin 5,000 UNITS/ML VIAL SC SCH (09:01)
[2021-08-19] MEDS: rOPINIRole HCl 0.25 MG TAB PO SCH (09:11)
[2021-08-19 11:33] VITALS: BP 153/113; TEMP 97.7
[2021-08-19] MEDS ORDERED: Mometasone 200 MCG/Formoterol 5 MCG 120 PUFF INHALER INH SCH (18:30)
[2021-08-19] MEDS ORDERED: Atorvastatin Calcium 20 MG TAB PO SCH (21:00)
[2021-08-20] MEDS ORDERED: FLU VACC QS2021-22(6MOS UP)/PF 60 MCG/0.5 ML SYRINGE IM ONE (09:00)
== END 2021-08-19 14:14 | disposition home or self-care (01) | DRG 64 ==
LOC: ERS 12:51 → 2SW 16:13 → OBSVTOIN 08-18 16:01
PROVIDERS: ADMIT Internal Medicine; ATTEND Internal Medicine
DX: I63.9 Cerebral infarction, unspecified (principal); I21.4 Non-ST elevation (NSTEMI) myocardial infarction; I16.1 Hypertensive emergency; J44.9 Chronic obstructive pulmonary disease, unspecified; G47.33 Obstructive sleep apnea (adult) (pediatric); H61.21 Impacted cerumen, right ear; I66.02 Occlusion and stenosis of left middle cerebral artery; G25.81 Restless legs syndrome; E78.00 Pure hypercholesterolemia, unspecified; N18.30 Chronic kidney disease, stage 3 unspecified; E11.22 Type 2 diabetes mellitus with diabetic chronic kidney disease; F17.200 Nicotine dependence, unspecified, uncomplicated; Z79.82 Long term (current) use of aspirin; Z79.899 Other long term (current) drug therapy; Z79.4 Long term (current) use of insulin; Z86.73 Personal history of transient ischemic attack (TIA), and cerebral infarction without residual deficits
CPT/HCPCS: 36415; 36416; 70450; 70496; 70498; 70551; 71045; 80048; 80053; 80061; 82553; 83880; 84484; 85025; 93005; 94640; 95816; 95819; 95957; J0360; J1644; J1815; J2920; J7611; U0002

== ENCOUNTER 2021-08-23 19:48 | Emergency (ER) | payer MEDICARE ==
[2021-08-23 21:39] LABS: #Eosinphils 0.3 thou/uL (0.0-0.7); #Lymphocytes 1.9 thou/uL (1.20-3.40); #Monocytes 0.5 thou/uL (0.11-0.59); #Neutrophils 7.1 thou/uL (1.40-6.50); %Basophils 0.1 % (0.0-1.0); %Eosinophils 3.3 % (0.0-10.0); %Lymphocytes 19.2 % (21.0-51.0); %Monocytes 5.2 % (0.0-10.0); %Neutrophils 72.2 % (42.0-75.0); Hemoglobin 13.3 g/dL (14.0-18.0); Mean Corpuscular HGB CONC 33.7 g/dL (32.0-36.0); Mean Corpuscular Hemoglobin 29.1 pg (27.0-31.0); Mean Corpuscular Volume 86.4 fL (78.0-98.0); Mean Platelet Volume 6.4 fL (7.4-10.4); Platelet Count 317 thou/uL (130-400); RBC Distribution Width 13.4 % (11.5-14.5); Red Blood Cell (RBC) Count 4.56 mill/uL (4.70-6.10); White Blood Cell (WBC) Count 9.8 thou/uL (4.8-10.8)
[2021-08-23 22:04] LABS: ALT (SGPT) 16 U/L (8-55); AST (SGOT) 12 U/L (5-34); Albumin 3.8 g/dL (3.5-5.0); Alkaline Phosphatase 69 U/L (40-110); Anion Gap 14 mmol/L (10-20); BUN (Urea Nitrogen) 13 mg/dL (8.4-25.7); Bilirubin, Total 0.3 mg/dL (0.2-1.2); Calc. Creatinine Clearance 0 mL/min (70-130); Calcium 9.2 mg/dL (7.8-10.44); Carbon Dioxide 23 mmol/L (22-29); Chloride 103 mmol/L (98-107); Globulin 3.6 g/dL (2.4-3.5); Glucose 210 mg/dL (70-105); Potassium 4.1 mmol/L (3.5-5.1); Protein, Total 7.4 g/dL (6.0-8.3); Sodium 136 mmol/L (136-145)
[2021-08-23] MEDS ORDERED: predniSONE 20 MG TAB ONE (22:17)
[2021-08-23 22:53] LABS: CKMB 2.8 ng/mL (0-6.6)
== END 2021-08-23 23:54 | disposition home or self-care (01) ==
LOC: ERS 19:48
DX: J44.1 Chronic obstructive pulmonary disease with (acute) exacerbation (principal); R55 Syncope and collapse; E11.9 Type 2 diabetes mellitus without complications; I11.0 Hypertensive heart disease with heart failure; I50.9 Heart failure, unspecified; Z87.891 Personal history of nicotine dependence
CPT/HCPCS: 36415; 71045; 80053; 82553; 84484; 85025; 93005; 94640; J7512; J7620

== ENCOUNTER 2021-08-25 22:55 | Observation (INO) | payer MEDICARE ==
[2021-08-26 02:22] VITALS: BMI 41.1
[2021-08-26] MEDS ORDERED: Ondansetron ODT 4 MG TAB PO PRN (07:44)
[2021-08-26] MEDS ORDERED: Meclizine HCl 25 MG TAB PO PRN (07:44)
[2021-08-26] MEDS ORDERED: Acetaminophen 325 MG TAB PO PRN (07:44)
[2021-08-26] MEDS ORDERED: Mometasone 200 MCG/Formoterol 5 MCG 120 PUFF INHALER INH SCH (08:00)
[2021-08-26] MEDS: Potassium Chloride 20 MEQ TAB PO SCH (08:43)
[2021-08-26] MEDS: Aspirin 325 mg Enteric Coated Tablet PO SCH (08:44)
[2021-08-26] MEDS: Ferrous Sulfate 325 MG TAB PO SCH (08:44)
[2021-08-26] MEDS: metFORMIN 500 MG TAB PO SCH ×2 (08:44→16:17)
[2021-08-26] MEDS: Furosemide 80 MG TAB PO SCH ×2 (08:44→21:33)
[2021-08-26] MEDS: Carbamide Peroxide 6.5% Otic Drops 15 ml Bottle R EAR SCH ×2 (08:45→21:35)
[2021-08-26] MEDS: Montelukast Sodium 10 mg Tablet PO SCH (08:45)
[2021-08-26] MEDS: Carvedilol 25 MG TAB PO SCH ×2 (08:45→21:33)
[2021-08-26] MEDS: Clopidogrel Bisulfate 75 MG TAB PO SCH (08:45)
[2021-08-26] MEDS ORDERED: Non-Formulary Item 1 EACH (Omeprazole [Omeprazole] 40 MG Capsule.Dr) PO SCH (09:00)
[2021-08-26] MEDS ORDERED: FLU VACC QS2021-22(6MOS UP)/PF 60 MCG/0.5 ML SYRINGE IM ONE (09:00)
[2021-08-26 17:17] LABS: SARS-CoV-2 PCR by NAA Not Detected (NotDetected)
[2021-08-26] MEDS: Mometasone 200 MCG/Formoterol 5 MCG 120 PUFF INHALER INH SCH (18:08)
[2021-08-26] MEDS ORDERED: Atorvastatin Calcium 20 MG TAB PO SCH (21:00)
[2021-08-26] MEDS ORDERED: Amlodipine 5 MG TAB PO SCH (21:00)
[2021-08-26] MEDS ORDERED: rOPINIRole HCl 1 MG TAB PO SCH (21:00)
[2021-08-27 06:25] LABS: Cardiac Risk 5.2 (Less than 4.5)
[2021-08-27] MEDS: Mometasone 200 MCG/Formoterol 5 MCG 120 PUFF INHALER INH SCH (07:09)
[2021-08-27 08:08] VITALS: BP 134/75; TEMP 98.4
[2021-08-27] MEDS: Potassium Chloride 20 MEQ TAB PO SCH (09:38)
[2021-08-27] MEDS: Clopidogrel Bisulfate 75 MG TAB PO SCH (09:38)
[2021-08-27] MEDS: Carbamide Peroxide 6.5% Otic Drops 15 ml Bottle R EAR SCH (09:38)
[2021-08-27] MEDS: metFORMIN 500 MG TAB PO SCH (09:39)
[2021-08-27] MEDS: Ferrous Sulfate 325 MG TAB PO SCH (09:39)
[2021-08-27] MEDS: Aspirin 325 mg Enteric Coated Tablet PO SCH (09:39)
[2021-08-27] MEDS: Furosemide 80 MG TAB PO SCH (09:39)
[2021-08-27] MEDS: Carvedilol 25 MG TAB PO SCH (09:40)
[2021-08-27] MEDS: Montelukast Sodium 10 mg Tablet PO SCH (09:40)
== END 2021-08-27 10:15 | disposition home or self-care (01) ==
LOC: NEURO 08-26 01:17
PROVIDERS: ADMIT Internal Medicine; ATTEND Internal Medicine
DX: R53.1 Weakness (principal); R20.2 Paresthesia of skin; I25.10 Atherosclerotic heart disease of native coronary artery without angina pectoris; I12.9 Hypertensive chronic kidney disease with stage 1 through stage 4 chronic kidney disease, or unspecified chronic kidney disease; E11.22 Type 2 diabetes mellitus with diabetic chronic kidney disease; N18.30 Chronic kidney disease, stage 3 unspecified; J44.9 Chronic obstructive pulmonary disease, unspecified; E78.5 Hyperlipidemia, unspecified; G47.33 Obstructive sleep apnea (adult) (pediatric); Z20.822 Contact with and (suspected) exposure to COVID-19; F17.210 Nicotine dependence, cigarettes, uncomplicated; Z79.02 Long term (current) use of antithrombotics/antiplatelets; Z79.82 Long term (current) use of aspirin; Z79.84 Long term (current) use of oral hypoglycemic drugs; Z79.899 Other long term (current) drug therapy; Z86.711 Personal history of pulmonary embolism
CPT/HCPCS: 70551; 80061; 82962 ×2; 94640; 97139 ×4; G0378 ×2; U0003; U0005; 36415; 36416

== ENCOUNTER 2022-07-27 14:22 | Outpatient (CLI) | payer MEDICARE | END 2022-07-27 14:23 | disposition home or self-care (01) | LOC: RAD 14:22 | PROVIDERS: ATTEND Internal Medicine Critical Care Medicine | DX: R06.00 Dyspnea, unspecified (principal) | CPT/HCPCS: 71046 ==

== ENCOUNTER 2022-09-06 06:10 | Emergency (ER) | payer MEDICARE ==
[2022-09-06 07:46] LABS: #Eosinphils 0.2 thou/uL (0.0-0.7); #Lymphocytes 1.9 thou/uL (1.20-3.40); #Monocytes 0.7 thou/uL (0.11-0.59); #Neutrophils 7.1 thou/uL (1.40-6.50); %Basophils 0.1 % (0.0-1.0); %Eosinophils 1.6 % (0.0-10.0); %Lymphocytes 19.2 % (21.0-51.0); %Monocytes 6.9 % (0.0-10.0); %Neutrophils 72.2 % (42.0-75.0); Hemoglobin 15.1 g/dL (14.0-18.0); Mean Corpuscular HGB CONC 33.6 g/dL (32.0-36.0); Mean Corpuscular Hemoglobin 30.7 pg (27.0-31.0); Mean Corpuscular Volume 91.3 fl (78.0-98.0); Platelet Count 315 10x3/uL (130-400); RBC Distribution Width 13.3 % (11.5-14.5); Red Blood Cell (RBC) Count 4.92 mill/uL (4.70-6.10); White Blood Cell (WBC) Count 9.8 10x3/uL (4.8-10.8)
[2022-09-06 08:06] LABS: ALT (SGPT) 26 U/L (8-55); AST (SGOT) 16 U/L (5-34); Albumin 4.5 g/dL (3.5-5.0); Alkaline Phosphatase 70 U/L (40-110); Anion Gap 17 mmol/L (10-20); BUN (Urea Nitrogen) 18 mg/dL (8.4-25.7); Bilirubin, Total 0.5 mg/dL (0.2-1.2); Calc. Creatinine Clearance 0 mL/min (70-130); Calcium 9.3 mg/dL (7.8-10.44); Carbon Dioxide 25 mmol/L (22-29); Chloride 101 mmol/L (98-107); Estimated GFR 52; Globulin 2.8 g/dL (2.4-3.5); Glucose 178 mg/dL (70-105); Lipase 37 U/L (8-78); Potassium 4.3 mmol/L (3.5-5.1); Protein, Total 7.3 g/dL (6.0-8.3); Sodium 139 mmol/L (136-145)
[2022-09-06 08:09] LABS: Digoxin Less than 0.15 ng/mL (0.8-2.0)
[2022-09-06 08:17] LABS: CKMB 1.2 ng/mL (0-6.6)
[2022-09-06 09:39] LABS: Troponin I 0.047 ng/mL (< 0.028)
== END 2022-09-06 10:13 | disposition home or self-care (01) ==
LOC: ERS 06:10
DX: R55 Syncope and collapse (principal); R77.8 Other specified abnormalities of plasma proteins; E11.9 Type 2 diabetes mellitus without complications; K21.9 Gastro-esophageal reflux disease without esophagitis; I11.0 Hypertensive heart disease with heart failure; I50.9 Heart failure, unspecified; F17.210 Nicotine dependence, cigarettes, uncomplicated
CPT/HCPCS: 36415; 36416; 71045; 80053; 80162; 82553; 83690; 84484; 85025; 93005; 94760

== ENCOUNTER 2024-04-25 02:28 | Inpatient (IN) | payer MEDICARE ==
[2024-04-25 03:06] LABS: #Basophils 0.03 10x3/uL (0.0-0.2); %Basophils 0.3 % (0.0-1.0); %Eosinophils 1.2 % (0.0-10.0); %Lymphocytes 16.6 % (21.0-51.0); %Monocytes 7.5 % (0.0-10.0); %Neutrophils 73.8 % (42.0-75.0); Hematocrit 42.5 % (42.0-52.0); Hemoglobin 14.4 g/dL (14.0-18.0); Mean Corpuscular HGB CONC 33.9 g/dL (32.0-36.0); Mean Corpuscular Hemoglobin 30.3 pg (27.0-31.0); Mean Corpuscular Volume 89.5 fL (78.0-98.0); Mean Platelet Volume 9.1 fL (7.4-10.4); Platelet Count 268 10x3/uL (130-400); RBC Distribution Width 13.6 % (11.5-14.5); Red Blood Cell (RBC) Count 4.75 mill/uL (4.70-6.10)
[2024-04-25 03:23] LABS: ALT (SGPT) 25 U/L (8-55); AST (SGOT) 16 U/L (5-34); Albumin 3.6 g/dL (3.5-5.0); Alkaline Phosphatase 62 U/L (40-110); Anion Gap 18 mmol/L (10-20); BUN (Urea Nitrogen) 25 mg/dL (8.4-25.7); Bilirubin, Total 0.5 mg/dL (0.2-1.2); Calc. Creatinine Clearance 0 mL/min (70-130); Calcium 9.4 mg/dL (7.8-10.44); Carbon Dioxide 24 mmol/L (22-29); Chloride 100 mmol/L (98-107); Estimated GFR 53; Globulin 3.3 g/dL (2.4-3.5); Glucose 205 mg/dL (70-105); Potassium 3.6 mmol/L (3.5-5.1); Protein, Total 6.9 g/dL (6.0-8.3); Sodium 138 mmol/L (136-145)
[2024-04-25 03:27] LABS: Troponin I 0.047 ng/mL (< 0.028)
[2024-04-25] MEDS ORDERED: Aspirin Chewable 81 MG TAB ONE (03:44)
[2024-04-25] MEDS ORDERED: methylPREDNISolone Sod Succ/PF 125 MG/2 ML VIAL ONE (04:50)
[2024-04-25] MEDS ORDERED: Magnesium 2 GM/50 ML BAG (IN WATER) ONE (04:50)
[2024-04-25 04:56] LABS: Actual Bicarbonate (HCO3v) 22.9 mEq/L (22-28); Analyzer IN Cardio ER; Base Excess -1.3 mEq/L (-2.0 to +3.0); Calcium, Ionized (venous) 1.12 mmol/L (1.16-1.32); Chloride (VBG) 98 mmol/L (98-106); Hematocrit-VBG 46 % (42.0-52.0); Hemoglobin (Hb) 15.5 g/dL (13.1-17.2); Potassium (VBG) 4.01 mmol/L (3.70-5.30); Sodium 135 mmol/L (133-146); pH (venous) 7.408 (7.32-7.43)
[2024-04-25] MEDS ORDERED: Albuterol 2.5 MG (0.5 mL) NEB ONE (05:01)
[2024-04-25] MEDS ORDERED: Ipratropium Bromide 2.5 ml Neb ONE (05:01)
[2024-04-25] MEDS ORDERED: Dextrose 50% Abboject 50 ML SYRINGE SLOW IVP PRN (07:04)
[2024-04-25] MEDS ORDERED: Glucagon 1 MG/ML KIT IM PRN (07:04)
[2024-04-25] MEDS ORDERED: Dextrose 5% in Water 1,000 ML IV PRN (07:04)
[2024-04-25 07:44] VITALS: BMI 39.9
[2024-04-25] MEDS ORDERED: [UNRECOGNIZED DRUG - OTHER] INH SCH (09:00)
[2024-04-25] MEDS ORDERED: FLUTICASONE PROPIONATE INH SCH (09:00)
[2024-04-25] MEDS ORDERED: Non-Formulary Item 1 EACH (Carvedilol [Carvedilol] 12.5 MG Tablet) PO SCH (09:00)
[2024-04-25] MEDS ORDERED: SALMETEROL INH SCH (09:00)
[2024-04-25] MEDS ORDERED: Aspirin 81 mg Enteric Coated Tablet PO SCH (09:00)
[2024-04-25] MEDS: Carvedilol 6.25 MG TAB PO SCH (09:46)
[2024-04-25] MEDS: metFORMIN 500 MG TAB PO SCH (09:46)
[2024-04-25] MEDS: Clopidogrel Bisulfate 75 MG TAB PO SCH (09:46)
[2024-04-25] MEDS: Ezetimibe 10 MG TAB PO SCH (09:47)
[2024-04-25] MEDS: Aspirin 325 MG TAB PO SCH (09:47)
[2024-04-25] MEDS ORDERED: Bisacodyl 5 MG TAB PO PRN (10:12)
[2024-04-25] MEDS: Nicotine 21 MG PATCH TD SCH (11:11)
[2024-04-25] MEDS: hydrALAZINE 20 MG/ML VIAL SLOW IVP PRN (11:40)
[2024-04-25] MEDS: Insulin Lispro 100 UNIT/ML 10 ML VIAL SC PRN ×2 (12:04→22:09)
[2024-04-25] MEDS: Labetalol HCl 100 MG/20 ML VIAL SLOW IVP PRN (13:10)
[2024-04-25] MEDS ORDERED: Iopamidol-370 76% 500 ML MDV (1 ML CHARGE) ONE (13:47)
[2024-04-25] MEDS: Ipratropium/Albuterol 3 ML NEB NEB PRN (14:16)
[2024-04-25] MEDS: Ferrous Sulfate 325 MG TAB PO SCH (18:12)
[2024-04-25] MEDS: Mometasone 200 MCG/Formoterol 5 MCG 120 PUFF INHALER INH SCH (18:40)
[2024-04-25] MEDS: Acetaminophen 325 MG TAB PO PRN (18:58)
[2024-04-25] MEDS: traMADol HCl 50 MG TAB PO PRN (20:07)
[2024-04-25] MEDS: Pregabalin 50 MG CAP PO SCH (20:09)
[2024-04-25] MEDS: Ranolazine ER 500 MG TAB PO SCH (20:09)
[2024-04-25] MEDS: Pantoprazole DR 40 MG TAB PO SCH (20:09)
[2024-04-25] MEDS: Amlodipine 5 MG TAB PO SCH (20:10)
[2024-04-25] MEDS: rOPINIRole HCl 1 MG TAB PO SCH (20:11)
[2024-04-25] MEDS ORDERED: Atorvastatin Calcium 40 MG TAB PO SCH (21:00)
[2024-04-26 04:57] LABS: #Basophils 0.04 10x3/uL (0.0-0.2); #Eosinphils Less than 0.03 10x3/uL (0.0-0.7); %Basophils 0.3 % (0.0-1.0); %Eosinophils 0.1 % (0.0-10.0); %Lymphocytes 12.4 % (21.0-51.0); %Neutrophils 79.6 % (42.0-75.0); Hemoglobin 14.7 g/dL (14.0-18.0); Mean Corpuscular HGB CONC 34.2 g/dL (32.0-36.0); Mean Corpuscular Hemoglobin 29.8 pg (27.0-31.0); Mean Corpuscular Volume 87.2 fL (78.0-98.0); Mean Platelet Volume 9.3 fL (7.4-10.4); Platelet Count 281 10x3/uL (130-400); RBC Distribution Width 13.5 % (11.5-14.5); Red Blood Cell (RBC) Count 4.93 mill/uL (4.70-6.10)
[2024-04-26 05:10] LABS: Anion Gap 17 mmol/L (10-20); BUN (Urea Nitrogen) 23 mg/dL (8.4-25.7); Calc. Creatinine Clearance 102 mL/min (70-130); Calcium 9.4 mg/dL (7.8-10.44); Carbon Dioxide 22 mmol/L (22-29); Chloride 101 mmol/L (98-107); Estimated GFR 58; Glucose 213 mg/dL (70-105); Potassium 4.3 mmol/L (3.5-5.1); Sodium 136 mmol/L (136-145)
[2024-04-26] MEDS: Insulin Lispro 100 UNIT/ML 10 ML VIAL SC PRN (05:28)
[2024-04-26] MEDS: Enoxaparin 40 MG (0.4 mL) SYRINGE SC SCH (09:25)
[2024-04-26] MEDS: Atorvastatin Calcium 40 MG TAB PO SCH (09:26)
[2024-04-26] MEDS: Furosemide 40 MG TAB PO SCH (09:26)
[2024-04-26] MEDS: Tamsulosin HCl 0.4 MG CAP PO SCH (09:26)
[2024-04-26] MEDS: Gabapentin 300 MG CAP PO SCH (09:27)
[2024-04-26] MEDS: Isosorbide Mononitrate 60 MG ER.TAB PO SCH (09:27)
[2024-04-26] MEDS: Montelukast Sodium 10 mg Tablet PO SCH (09:28)
[2024-04-26] MEDS: Meclizine HCl 25 MG TAB PO PRN (15:45)
[2024-04-27 05:03] LABS: #Basophils 0.05 10x3/uL (0.0-0.2); %Basophils 0.5 % (0.0-1.0); %Eosinophils 0.9 % (0.0-10.0); %Lymphocytes 24.8 % (21.0-51.0); %Monocytes 8.2 % (0.0-10.0); %Neutrophils 64.7 % (42.0-75.0); Hematocrit 43.1 % (42.0-52.0); Hemoglobin 14.7 g/dL (14.0-18.0); Mean Corpuscular HGB CONC 34.1 g/dL (32.0-36.0); Mean Corpuscular Hemoglobin 30.9 pg (27.0-31.0); Mean Corpuscular Volume 90.7 fL (78.0-98.0); Mean Platelet Volume 9.3 fL (7.4-10.4); Platelet Count 265 10x3/uL (130-400); RBC Distribution Width 13.8 % (11.5-14.5); Red Blood Cell (RBC) Count 4.75 mill/uL (4.70-6.10)
[2024-04-27 05:26] LABS: Anion Gap 15 mmol/L (10-20); BUN (Urea Nitrogen) 25 mg/dL (8.4-25.7); Calc. Creatinine Clearance 116 mL/min (70-130); Carbon Dioxide 24 mmol/L (22-29); Chloride 100 mmol/L (98-107); Estimated GFR 68; Glucose 157 mg/dL (70-105); Potassium 3.8 mmol/L (3.5-5.1); Sodium 135 mmol/L (136-145)
[2024-04-27] MEDS: traMADol HCl 50 MG TAB PO PRN (18:45)
[2024-04-27] MEDS: Ipratropium/Albuterol 3 ML NEB NEB SCH (22:05)
[2024-04-28 05:31] LABS: #Basophils 0.04 10x3/uL (0.0-0.2); %Basophils 0.5 % (0.0-1.0); %Eosinophils 0.9 % (0.0-10.0); %Lymphocytes 17.8 % (21.0-51.0); %Monocytes 8.6 % (0.0-10.0); %Neutrophils 71.5 % (42.0-75.0); Hematocrit 41.7 % (42.0-52.0); Hemoglobin 14.2 g/dL (14.0-18.0); Mean Corpuscular HGB CONC 34.1 g/dL (32.0-36.0); Mean Corpuscular Hemoglobin 30.3 pg (27.0-31.0); Mean Corpuscular Volume 88.9 fL (78.0-98.0); Mean Platelet Volume 9.4 fL (7.4-10.4); Platelet Count 252 10x3/uL (130-400); RBC Distribution Width 13.6 % (11.5-14.5); Red Blood Cell (RBC) Count 4.69 mill/uL (4.70-6.10)
[2024-04-28 05:55] LABS: Anion Gap 15 mmol/L (10-20); BUN (Urea Nitrogen) 26 mg/dL (8.4-25.7); Calc. Creatinine Clearance 87 mL/min (70-130); Calcium 8.9 mg/dL (7.8-10.44); Carbon Dioxide 23 mmol/L (22-29); Chloride 103 mmol/L (98-107); Estimated GFR 48; Glucose 253 mg/dL (70-105); Sodium 137 mmol/L (136-145)
[2024-04-29 04:01] LABS: #Basophils 0.05 10x3/uL (0.0-0.2); %Basophils 0.5 % (0.0-1.0); %Eosinophils 1.9 % (0.0-10.0); %Lymphocytes 20.6 % (21.0-51.0); %Monocytes 7.7 % (0.0-10.0); %Neutrophils 68.3 % (42.0-75.0); Hematocrit 40.3 % (42.0-52.0); Hemoglobin 13.9 g/dL (14.0-18.0); Mean Corpuscular HGB CONC 34.5 g/dL (32.0-36.0); Mean Corpuscular Hemoglobin 29.8 pg (27.0-31.0); Mean Corpuscular Volume 86.5 fL (78.0-98.0); Mean Platelet Volume 9.3 fL (7.4-10.4); Platelet Count 248 10x3/uL (130-400); RBC Distribution Width 13.4 % (11.5-14.5); Red Blood Cell (RBC) Count 4.66 mill/uL (4.70-6.10)
[2024-04-29 04:17] LABS: Anion Gap 14 mmol/L (10-20); BUN (Urea Nitrogen) 25 mg/dL (8.4-25.7); Calc. Creatinine Clearance 91 mL/min (70-130); Calcium 9.1 mg/dL (7.8-10.44); Carbon Dioxide 27 mmol/L (22-29); Chloride 102 mmol/L (98-107); Estimated GFR 51; Glucose 196 mg/dL (70-105); Potassium 4.3 mmol/L (3.5-5.1); Sodium 139 mmol/L (136-145)
[2024-04-29] MEDS ORDERED: PROPOFOL 20 ML ONE (13:31)
[2024-04-29] MEDS ORDERED: Lidocaine 1% PF 5 ML VIAL ONE (13:40)
[2024-04-30 04:06] LABS: #Basophils 0.05 10x3/uL (0.0-0.2); %Basophils 0.5 % (0.0-1.0); %Eosinophils 2.1 % (0.0-10.0); %Lymphocytes 20.2 % (21.0-51.0); %Monocytes 7.9 % (0.0-10.0); %Neutrophils 68.1 % (42.0-75.0); Hematocrit 41.2 % (42.0-52.0); Hemoglobin 14.1 g/dL (14.0-18.0); Mean Corpuscular HGB CONC 34.2 g/dL (32.0-36.0); Mean Corpuscular Hemoglobin 30.3 pg (27.0-31.0); Mean Corpuscular Volume 88.6 fL (78.0-98.0); Mean Platelet Volume 9.5 fL (7.4-10.4); Platelet Count 247 10x3/uL (130-400); RBC Distribution Width 13.7 % (11.5-14.5); Red Blood Cell (RBC) Count 4.65 mill/uL (4.70-6.10)
[2024-04-30 04:23] LABS: Anion Gap 14 mmol/L (10-20); BUN (Urea Nitrogen) 21 mg/dL (8.4-25.7); Calc. Creatinine Clearance 107 mL/min (70-130); Carbon Dioxide 26 mmol/L (22-29); Chloride 101 mmol/L (98-107); Estimated GFR 62; Glucose 206 mg/dL (70-105); Sodium 137 mmol/L (136-145)
[2024-04-30] MEDS: Aspirin 81 mg Enteric Coated Tablet PO SCH (09:50)
[2024-04-30] MEDS ORDERED: Benzocaine/Menthol 1 LOZ LOZ PO PRN (10:18)
[2024-04-30] MEDS: Guaifenesin DM 100-10/5 ML UDCUP PO SCH (12:30)
[2024-04-30] MEDS: Ipratropium/Albuterol 3 ML NEB NEB SCH (14:43)
[2024-04-30] MEDS: Guaifenesin DM 100-10/5 ML UDCUP PO PRN (18:42)
[2024-04-30] MEDS: guaiFENesin ER 600 MG TAB PO SCH (22:52)
[2024-04-30] MEDS: Cyanocobalamin (Vitamin B-12) 1,000 MCG TAB PO SCH (22:52)
[2024-04-30] MEDS: Cholecalciferol 1,000 UNITS (25 MCG) TAB PO SCH (22:52)
[2024-04-30] MEDS: Insulin Glargine 30 UNITS/0.3 ML VIAL SC SCH (22:53)
[2024-05-01 04:13] LABS: #Basophils 0.07 10x3/uL (0.0-0.2); %Basophils 0.7 % (0.0-1.0); %Eosinophils 2.2 % (0.0-10.0); %Lymphocytes 17.8 % (21.0-51.0); %Monocytes 6.5 % (0.0-10.0); %Neutrophils 71.7 % (42.0-75.0); Hematocrit 42.6 % (42.0-52.0); Hemoglobin 14.3 g/dL (14.0-18.0); Mean Corpuscular HGB CONC 33.6 g/dL (32.0-36.0); Mean Corpuscular Hemoglobin 29.7 pg (27.0-31.0); Mean Corpuscular Volume 88.4 fL (78.0-98.0); Mean Platelet Volume 9.3 fL (7.4-10.4); Platelet Count 249 10x3/uL (130-400); RBC Distribution Width 13.5 % (11.5-14.5); Red Blood Cell (RBC) Count 4.82 mill/uL (4.70-6.10)
[2024-05-01 04:32] LABS: Anion Gap 19 mmol/L (10-20); BUN (Urea Nitrogen) 21 mg/dL (8.4-25.7); Calc. Creatinine Clearance 98 mL/min (70-130); Calcium 9.1 mg/dL (7.8-10.44); Carbon Dioxide 23 mmol/L (22-29); Chloride 101 mmol/L (98-107); Estimated GFR 55; Glucose 157 mg/dL (70-105); Magnesium 1.8 mg/dL (1.6-2.6); Potassium 3.7 mmol/L (3.5-5.1); Sodium 139 mmol/L (136-145)
[2024-05-01] MEDS: Magnesium 2 GM/50 ML(in water) 2 GM in Premix 1 BAG IVPB SCH (08:56)
[2024-05-01 10:37] VITALS: BMI 41.0
[2024-05-01] MEDS: Ondansetron PF 4 MG/2 ML Vial IVP SCH (11:59)
[2024-05-01] MEDS: Carvedilol 6.25 MG TAB PO SCH (17:35)
[2024-05-01] MEDS: Aspirin-Dipyridamole 200-25mg CAP PO SCH (21:32)
[2024-05-02 04:17] LABS: #Basophils 0.06 10x3/uL (0.0-0.2); %Basophils 0.6 % (0.0-1.0); %Eosinophils 2.3 % (0.0-10.0); %Lymphocytes 16.1 % (21.0-51.0); %Neutrophils 71.7 % (42.0-75.0); Hemoglobin 13.7 g/dL (14.0-18.0); Mean Corpuscular HGB CONC 33.4 g/dL (32.0-36.0); Mean Corpuscular Hemoglobin 29.7 pg (27.0-31.0); Mean Corpuscular Volume 88.7 fL (78.0-98.0); Mean Platelet Volume 9.7 fL (7.4-10.4); Platelet Count 254 10x3/uL (130-400); RBC Distribution Width 13.7 % (11.5-14.5); Red Blood Cell (RBC) Count 4.62 mill/uL (4.70-6.10)
[2024-05-02 04:47] LABS: Anion Gap 15 mmol/L (10-20); BUN (Urea Nitrogen) 21 mg/dL (8.4-25.7); Calc. Creatinine Clearance 96 mL/min (70-130); Carbon Dioxide 23 mmol/L (22-29); Chloride 103 mmol/L (98-107); Estimated GFR 55; Glucose 253 mg/dL (70-105); Potassium 3.9 mmol/L (3.5-5.1); Sodium 137 mmol/L (136-145)
[2024-05-02] MEDS: Isosorbide Mononitrate 60 MG ER.TAB PO SCH (09:36)
[2024-05-02] MEDS: Aspirin 81 mg Enteric Coated Tablet PO SCH (09:38)
[2024-05-02] MEDS: Carvedilol 3.125 MG TAB PO SCH (17:52)
[2024-05-03] MEDS: Furosemide 20 MG TAB PO SCH ×2 (04:15→05:36)
[2024-05-03 04:23] LABS: #Basophils 0.08 10x3/uL (0.0-0.2); %Basophils 0.8 % (0.0-1.0); %Eosinophils 3.4 % (0.0-10.0); %Lymphocytes 20.9 % (21.0-51.0); %Monocytes 7.3 % (0.0-10.0); Hematocrit 40.3 % (42.0-52.0); Hemoglobin 13.6 g/dL (14.0-18.0); Mean Corpuscular HGB CONC 33.7 g/dL (32.0-36.0); Mean Corpuscular Hemoglobin 29.9 pg (27.0-31.0); Mean Corpuscular Volume 88.6 fL (78.0-98.0); Mean Platelet Volume 9.6 fL (7.4-10.4); Platelet Count 248 10x3/uL (130-400); RBC Distribution Width 13.6 % (11.5-14.5); Red Blood Cell (RBC) Count 4.55 mill/uL (4.70-6.10)
[2024-05-03 04:46] LABS: Anion Gap 15 mmol/L (10-20); BUN (Urea Nitrogen) 17 mg/dL (8.4-25.7); Calc. Creatinine Clearance 111 mL/min (70-130); Carbon Dioxide 25 mmol/L (22-29); Chloride 102 mmol/L (98-107); Estimated GFR 65; Glucose 160 mg/dL (70-105); Magnesium 1.8 mg/dL (1.6-2.6); Potassium 3.8 mmol/L (3.5-5.1); Sodium 138 mmol/L (136-145)
[2024-05-03] MEDS ORDERED: Furosemide 20 MG TAB PO SCH (09:00)
[2024-05-03] MEDS ORDERED: Polyethylene Glycol 3350 17 GM Packet PO PRN (16:24)
[2024-05-03] MEDS: Furosemide 40 MG TAB PO SCH (17:11)
[2024-05-03] MEDS: Potassium Chloride 20 MEQ TAB PO SCH (17:11)
[2024-05-03] MEDS: Senokot S 8.6-50 MG TAB PO SCH (21:12)
[2024-05-03] MEDS: Magnesium Oxide 400 MG TAB PO SCH (21:12)
[2024-05-04 04:44] LABS: #Basophils 0.07 10x3/uL (0.0-0.2); %Basophils 0.7 % (0.0-1.0); %Eosinophils 2.6 % (0.0-10.0); %Lymphocytes 16.8 % (21.0-51.0); %Monocytes 6.5 % (0.0-10.0); %Neutrophils 72.1 % (42.0-75.0); Hematocrit 41.3 % (42.0-52.0); Hemoglobin 14.2 g/dL (14.0-18.0); Mean Corpuscular HGB CONC 34.4 g/dL (32.0-36.0); Mean Corpuscular Hemoglobin 30.1 pg (27.0-31.0); Mean Corpuscular Volume 87.7 fL (78.0-98.0); Mean Platelet Volume 9.7 fL (7.4-10.4); Platelet Count 291 10x3/uL (130-400); RBC Distribution Width 13.5 % (11.5-14.5); Red Blood Cell (RBC) Count 4.71 mill/uL (4.70-6.10)
[2024-05-04 05:02] LABS: Anion Gap 16 mmol/L (10-20); BUN (Urea Nitrogen) 21 mg/dL (8.4-25.7); Calc. Creatinine Clearance 105 mL/min (70-130); Carbon Dioxide 25 mmol/L (22-29); Chloride 99 mmol/L (98-107); Estimated GFR 60; Glucose 215 mg/dL (70-105); Potassium 3.6 mmol/L (3.5-5.1); Sodium 136 mmol/L (136-145)
[2024-05-04 08:58] VITALS: BP 138/72; TEMP 99
[2024-05-04] MEDS ORDERED: Furosemide 20 MG TAB PO SCH (09:00)
[2024-05-04] MEDS: Furosemide 40 MG TAB PO SCH (09:57)
== END 2024-05-04 12:08 | disposition home or self-care (01) | DRG 65 ==
LOC: ERS 02:28 → 2SE 06:47 → CCU 07:24 → 2SE 23:54
PROVIDERS: ADMIT Student in an Organized Health Care Education/Training Program; ATTEND Family Medicine
PROC: 5A09457 Assistance with Respiratory Ventilation, 24-96 Consecutive Hours, Continuous Positive Airway Pressure (ICD-10-PCS; 2024-04-26)
PROC: B245ZZ4 Ultrasonography of Left Heart, Transesophageal (ICD-10-PCS; principal; 2024-04-29)
DX: I63.89 Other cerebral infarction (principal); E87.1 Hypo-osmolality and hyponatremia; G81.94 Hemiplegia, unspecified affecting left nondominant side; K57.92 Diverticulitis of intestine, part unspecified, without perforation or abscess without bleeding; Z68.41 Body mass index [BMI] 40.0-44.9, adult; N17.9 Acute kidney failure, unspecified; I50.32 Chronic diastolic (congestive) heart failure; I13.0 Hypertensive heart and chronic kidney disease with heart failure and stage 1 through stage 4 chronic kidney disease, or unspecified chronic kidney disease; E11.22 Type 2 diabetes mellitus with diabetic chronic kidney disease; N18.2 Chronic kidney disease, stage 2 (mild); K21.9 Gastro-esophageal reflux disease without esophagitis; G47.33 Obstructive sleep apnea (adult) (pediatric); E11.65 Type 2 diabetes mellitus with hyperglycemia; F17.210 Nicotine dependence, cigarettes, uncomplicated; I70.0 Atherosclerosis of aorta; E83.42 Hypomagnesemia; E87.6 Hypokalemia; E66.01 Morbid (severe) obesity due to excess calories; Z79.899 Other long term (current) drug therapy; Z79.82 Long term (current) use of aspirin; Z98.890 Other specified postprocedural states; Z90.49 Acquired absence of other specified parts of digestive tract; Z71.6 Tobacco abuse counseling; J44.89 Other specified chronic obstructive pulmonary disease; R47.01 Aphasia; R29.700 NIHSS score 0; E53.8 Deficiency of other specified B group vitamins; I69.322 Dysarthria following cerebral infarction; I65.1 Occlusion and stenosis of basilar artery; I66.22 Occlusion and stenosis of left posterior cerebral artery
CPT/HCPCS: 36415; 36416; 70450; 70496; 70498; 70551; 71045; 80048; 80053; 82805; 83735; 84484; 85025; 93005; 93312; 94640; 94664; 94760; 96374; 96375; J0360; J1650; J1815; J2405; J2704; J2919; J3475; J7611; J7620; J7644; Q9967

== ENCOUNTER 2024-06-11 08:09 | Outpatient (CLI) | payer MEDICARE, MEDICAID | END 2024-06-11 08:10 | disposition home or self-care (01) | LOC: RAD 08:09 | PROVIDERS: ATTEND Internal Medicine Critical Care Medicine | DX: R06.00 Dyspnea, unspecified (principal) | CPT/HCPCS: 71046 ==

== ENCOUNTER 2024-07-31 08:12 | Inpatient (IN) | payer MEDICARE ==
[2024-07-31 08:55] LABS: #Basophils 0.06 10x3/uL (0.0-0.2); %Basophils 0.7 % (0.0-1.0); %Eosinophils 2.8 % (0.0-10.0); %Lymphocytes 22.7 % (21.0-51.0); %Monocytes 8.2 % (0.0-10.0); %Neutrophils 64.9 % (42.0-75.0); Hematocrit 45.1 % (42.0-52.0); Hemoglobin 14.9 g/dL (14.0-18.0); Mean Corpuscular Hemoglobin 30.4 pg (27.0-31.0); Mean Platelet Volume 8.9 fL (7.4-10.4); Platelet Count 286 10x3/uL (130-400); RBC Distribution Width 13.4 % (11.5-14.5)
[2024-07-31 09:08] LABS: PTT 27.6 sec (22.9-36.1); Prothrombin Time 13.6 sec (12.0-14.7)
[2024-07-31 09:13] LABS: ALT (SGPT) 22 U/L (8-55); AST (SGOT) 17 U/L (5-34); Albumin 3.6 g/dL (3.5-5.0); Alkaline Phosphatase 66 U/L (40-110); Anion Gap 16 mmol/L (10-20); BUN (Urea Nitrogen) 12 mg/dL (8.4-25.7); Bilirubin, Total 0.3 mg/dL (0.2-1.2); Calc. Creatinine Clearance 0 mL/min (70-130); Calcium 8.8 mg/dL (7.8-10.44); Carbon Dioxide 23 mmol/L (22-29); Chloride 108 mmol/L (98-107); Estimated GFR 69; Globulin 3.8 g/dL (2.4-3.5); Glucose 158 mg/dL (70-105); Potassium 4.3 mmol/L (3.5-5.1); Protein, Total 7.4 g/dL (6.0-8.3); Sodium 143 mmol/L (136-145)
[2024-07-31 09:19] LABS: Troponin I 0.026 ng/mL (< 0.028)
[2024-07-31] MEDS ORDERED: Iopamidol-370 76% 500 ML MDV (1 ML CHARGE) ONE (09:40)
[2024-07-31] MEDS ORDERED: Aspirin Chewable 81 MG TAB ONE (10:11)
[2024-07-31] MEDS ORDERED: Dextrose 50% Abboject 50 ML SYRINGE SLOW IVP PRN (11:00)
[2024-07-31] MEDS ORDERED: Glucagon 1 MG/ML KIT IM PRN (11:00)
[2024-07-31] MEDS ORDERED: Dextrose 5% in Water 1,000 ML IV PRN (11:00)
[2024-07-31] MEDS: Clopidogrel Bisulfate 75 MG TAB PO SCH (13:36)
[2024-07-31] MEDS: Ipratropium/Albuterol 3 ML NEB NEB SCH (14:18)
[2024-07-31] MEDS: Acetaminophen 325 MG TAB PO PRN (17:43)
[2024-07-31] MEDS ORDERED: Ondansetron ODT 4 MG TAB SL PRN (17:45)
[2024-07-31] MEDS ORDERED: Ondansetron PF 4 MG/2 ML Vial IVP PRN (17:45)
[2024-07-31] MEDS: Pregabalin 50 MG CAP PO SCH (20:47)
[2024-07-31] MEDS: rOPINIRole HCl 1 MG TAB PO SCH (20:48)
[2024-07-31] MEDS: Atorvastatin Calcium 40 MG TAB PO SCH (20:48)
[2024-07-31] MEDS: Ranolazine ER 500 MG TAB PO SCH (20:48)
[2024-08-01] MEDS: Acetaminophen 325 MG TAB PO PRN (02:10)
[2024-08-01 04:17] LABS: Cardiac Risk 4.5 (Less than 4.5)
[2024-08-01] MEDS: Tamsulosin HCl 0.4 MG CAP PO SCH (07:59)
[2024-08-01] MEDS: Pantoprazole DR 40 MG TAB PO SCH (07:59)
[2024-08-01] MEDS: Aspirin 81 mg Enteric Coated Tablet PO SCH (07:59)
[2024-08-01] MEDS: Furosemide 20 MG TAB PO SCH (07:59)
[2024-08-01] MEDS: Clopidogrel Bisulfate 75 MG TAB PO SCH (07:59)
[2024-08-01] MEDS: Enoxaparin 40 MG (0.4 mL) SYRINGE SC SCH (07:59)
[2024-08-01 11:51] LABS: Hemoglobin A1c 9.1 % (4.0-6.0)
[2024-08-01] MEDS: metFORMIN XR 500 MG ER.TAB PO SCH (11:54)
[2024-08-01] MEDS: Insulin Regular, Human 100 UNIT/ML 10 ML VIAL SC PRN (13:19)
[2024-08-01] MEDS: guaiFENesin/Codeine 200 mg/20 mg 10 ml Cup PO PRN (18:04)
[2024-08-01] MEDS: Budesonide 0.5 MG/2 ML NEB INH SCH (19:21)
[2024-08-02 04:54] LABS: Anion Gap 14 mmol/L (10-20); BUN (Urea Nitrogen) 16 mg/dL (8.4-25.7); Calc. Creatinine Clearance 113 mL/min (70-130); Carbon Dioxide 23 mmol/L (22-29); Chloride 102 mmol/L (98-107); Estimated GFR 66; Glucose 128 mg/dL (70-105); Magnesium 1.8 mg/dL (1.6-2.6); Potassium 3.9 mmol/L (3.5-5.1); Sodium 135 mmol/L (136-145)
[2024-08-02] MEDS: metFORMIN XR 500 MG ER.TAB PO SCH (08:13)
[2024-08-02 09:14] LABS: #Basophils 0.05 10x3/uL (0.0-0.2); %Basophils 0.6 % (0.0-1.0); %Eosinophils 1.9 % (0.0-10.0); %Lymphocytes 21.2 % (21.0-51.0); %Monocytes 7.7 % (0.0-10.0); %Neutrophils 68.2 % (42.0-75.0); Hematocrit 43.8 % (42.0-52.0); Hemoglobin 14.4 g/dL (14.0-18.0); Mean Corpuscular HGB CONC 32.9 g/dL (32.0-36.0); Mean Corpuscular Hemoglobin 30.4 pg (27.0-31.0); Mean Corpuscular Volume 92.6 fL (78.0-98.0); Platelet Count 268 10x3/uL (130-400); RBC Distribution Width 13.8 % (11.5-14.5); Red Blood Cell (RBC) Count 4.73 mill/uL (4.70-6.10)
[2024-08-02] MEDS: methylPREDNISolone Sod Succ 40 MG VIAL IVP SCH ×2 (09:55→10:04)
[2024-08-02] MEDS: Ampicillin/Sulbactam 1.5 GM in Sodium Chloride 0.9% 100 ML IVPB SCH (12:58)
[2024-08-02] MEDS: Ipratropium/Albuterol 3 ML NEB NEB SCH ×2 (14:58→22:27)
[2024-08-02] MEDS: Furosemide 20 MG TAB PO SCH (15:45)
[2024-08-02] MEDS ORDERED: Glucagon 1 MG/ML KIT IM PRN (19:59)
[2024-08-02] MEDS ORDERED: Dextrose 50% Abboject 50 ML SYRINGE SLOW IVP PRN (19:59)
[2024-08-02] MEDS ORDERED: Dextrose 5% in Water 1,000 ML IV PRN (19:59)
[2024-08-02] MEDS: Insulin Lispro 100 UNIT/ML 10 ML VIAL SC PRN (20:15)
[2024-08-03 03:58] LABS: Anion Gap 16 mmol/L (10-20); BUN (Urea Nitrogen) 21 mg/dL (8.4-25.7); Calc. Creatinine Clearance 100 mL/min (70-130); Calcium 8.9 mg/dL (7.8-10.44); Carbon Dioxide 23 mmol/L (22-29); Chloride 100 mmol/L (98-107); Estimated GFR 57; Glucose 191 mg/dL (70-105); Sodium 135 mmol/L (136-145)
[2024-08-03] MEDS: methylPREDNISolone Sod Succ 40 MG VIAL IVP SCH (09:00)
[2024-08-03] MEDS: Sodium Chloride 0.9% 1,000 ML IV SCH (09:32)
[2024-08-03] MEDS: Ipratropium Bromide 2.5 ml Neb NEB SCH (11:44)
[2024-08-03] MEDS: hydrALAZINE 20 MG/ML VIAL SLOW IVP PRN (23:08)
[2024-08-03] MEDS: Ipratropium/Albuterol 3 ML NEB NEB PRN (23:14)
[2024-08-03] MEDS: Magnesium 2 GM/50 ML(in water) 2 GM in Premix 1 BAG IVPB SCH (23:47)
[2024-08-04] MEDS: Azithromycin 500 MG in Sodium Chloride 0.9% 250 ML 250 ML IVPB SCH (00:47)
[2024-08-04] MEDS: Ipratropium/Albuterol 3 ML NEB NEB SCH (00:52)
[2024-08-04 04:49] LABS: Anion Gap 18 mmol/L (10-20); BUN (Urea Nitrogen) 22 mg/dL (8.4-25.7); Calc. Creatinine Clearance 125 mL/min (70-130); Calcium 9.1 mg/dL (7.8-10.44); Carbon Dioxide 20 mmol/L (22-29); Chloride 103 mmol/L (98-107); Estimated GFR 74; Glucose 179 mg/dL (70-105); Potassium 4.1 mmol/L (3.5-5.1); Sodium 137 mmol/L (136-145)
[2024-08-04] MEDS ORDERED: Furosemide 20 MG TAB PO SCH (09:00)
[2024-08-04 13:53] LABS: Actual Bicarbonate (HCO3a) 22.1 mEq/L (22-28); Base Excess (BEa) -2.2 mEq/L (-2.0 to +3.0); CO2 Tension 36.5 mmHg (35.0-45.0); Calcium, Ionized (arterial) 1.15 mmol/L (1.12-1.30); Carboxyhemoglobin (COHb) 0.7 gm% (0.0-3.0); Hematocrit-ABG 47 % (42.0-52.0); Hemoglobin (Hb) 15.9 g/dL (14.0-18.0); Potassium - ABG Lab 4.46 mmol/L (3.70-5.30); pH, Arterial 7.399 (7.35-7.45)
[2024-08-04 13:56] LABS: ALV-art Gradient 105.535 mmHg (0-20); Puncture Site Right Radial artery
[2024-08-04] MEDS: ALPRAZolam 0.25 MG TAB PO SCH (15:00)
[2024-08-05] MEDS: Dexmedetomidine In 0.9 % NaCl 100 ML IVPB SCH (00:54)
[2024-08-05 05:09] VITALS: BMI 41.0
[2024-08-05 05:10] LABS: Anion Gap 15 mmol/L (10-20); BUN (Urea Nitrogen) 22 mg/dL (8.4-25.7); Calc. Creatinine Clearance 151 mL/min (70-130); Calcium 8.7 mg/dL (7.8-10.44); Carbon Dioxide 23 mmol/L (22-29); Chloride 104 mmol/L (98-107); Estimated GFR 94; Glucose 190 mg/dL (70-105); Potassium 3.9 mmol/L (3.5-5.1); Sodium 138 mmol/L (136-145)
[2024-08-05] MEDS: Sodium Chloride 0.45% 1,000 ML IV SCH (13:12)
[2024-08-05] MEDS: Bupropion 150 MG SR.TAB PO SCH (13:15)
[2024-08-06 04:11] LABS: #Basophils Less than 0.03 10x3/uL (0.0-0.2); #Eosinophils Less than 0.03 10x3/uL (0.0-0.7); %Basophils 0.2 % (0.0-1.0); %Eosinophils 0.1 % (0.0-10.0); %Lymphocytes 15.1 % (21.0-51.0); %Monocytes 6.8 % (0.0-10.0); %Neutrophils 76.9 % (42.0-75.0); Hematocrit 41.6 % (42.0-52.0); Hemoglobin 13.7 g/dL (14.0-18.0); Mean Corpuscular HGB CONC 32.9 g/dL (32.0-36.0); Mean Corpuscular Hemoglobin 29.9 pg (27.0-31.0); Mean Corpuscular Volume 90.8 fL (78.0-98.0); Mean Platelet Volume 8.9 fL (7.4-10.4); Platelet Count 276 10x3/uL (130-400); RBC Distribution Width 13.5 % (11.5-14.5); Red Blood Cell (RBC) Count 4.58 mill/uL (4.70-6.10)
[2024-08-06 04:23] LABS: Anion Gap 13 mmol/L (10-20); BUN (Urea Nitrogen) 20 mg/dL (8.4-25.7); Calc. Creatinine Clearance 154 mL/min (70-130); Calcium 8.5 mg/dL (7.8-10.44); Carbon Dioxide 20 mmol/L (22-29); Chloride 107 mmol/L (98-107); Estimated GFR 96; Glucose 172 mg/dL (70-105); Potassium 4.2 mmol/L (3.5-5.1); Sodium 136 mmol/L (136-145)
[2024-08-06] MEDS ORDERED: Bisacodyl 5 MG TAB PO PRN (07:48)
[2024-08-06] MEDS: Bupropion 150 MG SR.TAB PO SCH (08:16)
[2024-08-06] MEDS: Bisacodyl 5 MG TAB PO SCH (08:17)
[2024-08-06] MEDS: Polyethylene Glycol 3350 17 GM Packet PO SCH (08:30)
[2024-08-06] MEDS: methylPREDNISolone Sod Succ 40 MG VIAL IVP SCH (15:35)
[2024-08-07] MEDS: Acetylcysteine 20% 200 MG/ML 30 ML VIAL INH SCH ×2 (03:26→06:30)
[2024-08-07] MEDS: Magnesium 2 GM/50 ML(in water) 2 GM in Premix 1 BAG IVPB SCH (04:05)
[2024-08-07] MEDS: Morphine 2 MG/ML VIAL SLOW IVP SCH (04:05)
[2024-08-07 04:25] LABS: Anion Gap 17 mmol/L (10-20); BUN (Urea Nitrogen) 20 mg/dL (8.4-25.7); Calc. Creatinine Clearance 130 mL/min (70-130); Calcium 8.6 mg/dL (7.8-10.44); Carbon Dioxide 19 mmol/L (22-29); Chloride 104 mmol/L (98-107); Estimated GFR 79; Glucose 202 mg/dL (70-105); Potassium 4.4 mmol/L (3.5-5.1); Sodium 136 mmol/L (136-145)
[2024-08-07] MEDS: Isosorbide Mononitrate 60 MG ER.TAB PO SCH (09:01)
[2024-08-07] MEDS: Carvedilol 3.125 MG TAB PO SCH (09:02)
[2024-08-08] MEDS: ALPRAZolam 0.25 MG TAB PO PRN (06:29)
[2024-08-08] MEDS ORDERED: Carvedilol 3.125 MG TAB PO SCH ×2 (08:18→09:15)
[2024-08-08] MEDS: predniSONE 20 MG TAB PO SCH (08:43)
[2024-08-08] MEDS: Carvedilol 6.25 MG TAB PO SCH ×2 (09:26→17:41)
[2024-08-08 13:55] VITALS: BMI 41.6
[2024-08-10] MEDS: metFORMIN 500 MG TAB PO SCH (09:02)
[2024-08-11 05:20] LABS: #Basophils 0.03 10x3/uL (0.0-0.2); %Basophils 0.3 % (0.0-1.0); %Eosinophils 0.6 % (0.0-10.0); %Lymphocytes 18.8 % (21.0-51.0); %Monocytes 7.2 % (0.0-10.0); %Neutrophils 71.6 % (42.0-75.0); Hematocrit 43.9 % (42.0-52.0); Mean Corpuscular HGB CONC 34.2 g/dL (32.0-36.0); Mean Corpuscular Hemoglobin 30.1 pg (27.0-31.0); Mean Platelet Volume 9.1 fL (7.4-10.4); Platelet Count 277 10x3/uL (130-400); RBC Distribution Width 13.3 % (11.5-14.5); Red Blood Cell (RBC) Count 4.99 mill/uL (4.70-6.10)
[2024-08-11 05:59] LABS: Anion Gap 14 mmol/L (10-20); BUN (Urea Nitrogen) 24 mg/dL (8.4-25.7); Calc. Creatinine Clearance 121 mL/min (70-130); Calcium 8.8 mg/dL (7.8-10.44); Carbon Dioxide 21 mmol/L (22-29); Chloride 107 mmol/L (98-107); Estimated GFR 74; Glucose 117 mg/dL (70-105); Potassium 3.8 mmol/L (3.5-5.1); Sodium 138 mmol/L (136-145)
[2024-08-11 12:46] VITALS: TEMP 98.1
[2024-08-11 15:58] VITALS: BP 139/86
== END 2024-08-11 17:02 | DRG 64 ==
LOC: ERS 08:12 → 2SE 12:16 → OBSVTOIN 08-01 08:48 → IMCU/EMU 08-04 20:23 → 2SE 08-10 15:41
PROVIDERS: ADMIT Internal Medicine; ATTEND Internal Medicine
PROC: 5A09457 Assistance with Respiratory Ventilation, 24-96 Consecutive Hours, Continuous Positive Airway Pressure (ICD-10-PCS; 2024-08-01)
PROC: 4A033R1 Measurement of Arterial Saturation, Peripheral, Percutaneous Approach (ICD-10-PCS; principal; 2024-08-04)
DX: I63.81 Other cerebral infarction due to occlusion or stenosis of small artery (principal); J96.01 Acute respiratory failure with hypoxia; G81.91 Hemiplegia, unspecified affecting right dominant side; N17.9 Acute kidney failure, unspecified; I50.32 Chronic diastolic (congestive) heart failure; Z68.41 Body mass index [BMI] 40.0-44.9, adult; J44.1 Chronic obstructive pulmonary disease with (acute) exacerbation; E11.9 Type 2 diabetes mellitus without complications; I25.10 Atherosclerotic heart disease of native coronary artery without angina pectoris; I11.0 Hypertensive heart disease with heart failure; E78.5 Hyperlipidemia, unspecified; N40.0 Benign prostatic hyperplasia without lower urinary tract symptoms; G47.33 Obstructive sleep apnea (adult) (pediatric); Z79.82 Long term (current) use of aspirin; Z79.899 Other long term (current) drug therapy; E66.01 Morbid (severe) obesity due to excess calories
CPT/HCPCS: 36415; 36416; 36600; 70450; 70496; 70498; 70551; 71045; 80048; 80053; 80061; 82805; 83036; 83735; 83880; 84443; 84484; 85025; 85610; 85730; 93005; 93306; 94640; 94660; 94760; 96372; G0378; J0132; J0295; J0360; J0456; J1650; J1815; J2272; J2919; J3475; J7030; J7050; J7512; J7620; J7626; J7644; Q9967

== ENCOUNTER 2024-08-12 13:29 | Inpatient (IN) | payer MEDICARE, OTHER ==
[2024-08-12] MEDS ORDERED: Iopamidol-370 76% 500 ML MDV (1 ML CHARGE) ONE (13:58)
[2024-08-12] MEDS ORDERED: Ipratropium/Albuterol 3 ML NEB ONE (13:59)
[2024-08-12 14:50] LABS: #Basophils 0.03 10x3/uL (0.0-0.2); #Eosinophils Less than 0.03 10x3/uL (0.0-0.7); %Basophils 0.3 % (0.0-1.0); %Eosinophils 0.1 % (0.0-10.0); %Lymphocytes 5.5 % (21.0-51.0); %Monocytes 2.1 % (0.0-10.0); %Neutrophils 90.6 % (42.0-75.0); Hematocrit 44.8 % (42.0-52.0); Hemoglobin 15.2 g/dL (14.0-18.0); Mean Corpuscular HGB CONC 33.9 g/dL (32.0-36.0); Mean Corpuscular Hemoglobin 30.3 pg (27.0-31.0); Mean Corpuscular Volume 89.2 fL (78.0-98.0); Mean Platelet Volume 9.5 fL (7.4-10.4); Platelet Count 265 10x3/uL (130-400); RBC Distribution Width 13.4 % (11.5-14.5); Red Blood Cell (RBC) Count 5.02 mill/uL (4.70-6.10)
[2024-08-12 15:04] LABS: ALT (SGPT) 29 U/L (8-55); AST (SGOT) 18 U/L (5-34); Albumin 3.4 g/dL (3.5-5.0); Alkaline Phosphatase 60 U/L (40-110); Anion Gap 15 mmol/L (10-20); BUN (Urea Nitrogen) 23 mg/dL (8.4-25.7); Bilirubin, Total 0.7 mg/dL (0.2-1.2); Calc. Creatinine Clearance 0 mL/min (70-130); Calcium 8.6 mg/dL (7.8-10.44); Carbon Dioxide 21 mmol/L (22-29); Chloride 102 mmol/L (98-107); Estimated GFR 75; Globulin 3.2 g/dL (2.4-3.5); Glucose 224 mg/dL (70-105); Potassium 4.4 mmol/L (3.5-5.1); Protein, Total 6.6 g/dL (6.0-8.3); Sodium 134 mmol/L (136-145)
[2024-08-12 15:11] LABS: Troponin I 0.029 ng/mL (< 0.028)
[2024-08-12] MEDS ORDERED: LevoFLOXacin 750 mg/D5W 150 ml Premix Bag ONE (15:50)
[2024-08-12] MEDS ORDERED: Sodium Chloride 0.9% 100 ML ONE (15:51)
[2024-08-12] MEDS ORDERED: Cefepime 2 GM VIAL ONE (15:51)
[2024-08-12] MEDS ORDERED: Dextrose 50% Abboject 50 ML SYRINGE SLOW IVP PRN (16:22)
[2024-08-12] MEDS ORDERED: Insulin Lispro 100 UNIT/ML 10 ML VIAL SC PRN (16:22)
[2024-08-12] MEDS ORDERED: Glucagon 1 MG/ML KIT IM PRN (16:22)
[2024-08-12] MEDS ORDERED: Acetaminophen 325 MG TAB PO PRN (16:22)
[2024-08-12] MEDS ORDERED: Ondansetron ODT 4 MG TAB PO PRN (16:22)
[2024-08-12] MEDS ORDERED: Dextrose 5% in Water 1,000 ML IV PRN (16:22)
[2024-08-12] MEDS ORDERED: Ondansetron PF 4 MG/2 ML Vial IVP PRN (16:22)
[2024-08-12] MEDS ORDERED: Ipratropium/Albuterol 3 ML NEB NEB PRN (16:40)
[2024-08-12] MEDS: Morphine 2 MG/ML VIAL SLOW IVP SCH (20:58)
[2024-08-12] MEDS: Sodium Chloride 0.9% 1,000 ML IV SCH (21:37)
[2024-08-12 21:38] VITALS: BMI 38.9
[2024-08-12] MEDS: Vancomycin (BATCH) 2.5 GM in Premix 1 BAG IVPB SCH (21:57)
[2024-08-13] MEDS: Piperacillin/Tazobactam 3.375 GM in Sodium Chloride 0.9% 100 ML IVPB SCH ×2 (01:29→05:06)
[2024-08-13 05:29] LABS: #Basophils 0.04 10x3/uL (0.0-0.2); #Eosinophils Less than 0.03 10x3/uL (0.0-0.7); %Basophils 0.3 % (0.0-1.0); %Eosinophils 0.2 % (0.0-10.0); %Lymphocytes 14.8 % (21.0-51.0); %Monocytes 7.6 % (0.0-10.0); %Neutrophils 75.9 % (42.0-75.0); Hematocrit 45.2 % (42.0-52.0); Hemoglobin 15.1 g/dL (14.0-18.0); Mean Corpuscular HGB CONC 33.4 g/dL (32.0-36.0); Mean Corpuscular Volume 89.9 fL (78.0-98.0); Mean Platelet Volume 9.4 fL (7.4-10.4); Platelet Count 252 10x3/uL (130-400); RBC Distribution Width 13.3 % (11.5-14.5); Red Blood Cell (RBC) Count 5.03 mill/uL (4.70-6.10)
[2024-08-13 07:00] LABS: Anion Gap 18 mmol/L (10-20); BUN (Urea Nitrogen) 21 mg/dL (8.4-25.7); Calc. Creatinine Clearance 125 mL/min (70-130); Calcium 8.5 mg/dL (7.8-10.44); Carbon Dioxide 19 mmol/L (22-29); Chloride 106 mmol/L (98-107); Estimated GFR 80; Glucose 99 mg/dL (70-105); Potassium 3.8 mmol/L (3.5-5.1); Sodium 139 mmol/L (136-145)
[2024-08-13] MEDS: Enoxaparin 40 MG (0.4 mL) SYRINGE SC SCH (07:52)
[2024-08-13 11:13] VITALS: BMI 38.9
[2024-08-13] MEDS: hydrALAZINE 20 MG/ML VIAL SLOW IVP PRN (13:05)
[2024-08-13] MEDS ORDERED: Calcium Carbonate 500 MG TAB PO PRN (17:50)
[2024-08-13] MEDS ORDERED: Loperamide HCl 2 MG CAP PO PRN (17:50)
[2024-08-13] MEDS: predniSONE 20 MG TAB PO SCH (18:50)
[2024-08-13] MEDS: Ipratropium/Albuterol 3 ML NEB NEB SCH (19:52)
[2024-08-13] MEDS: Budesonide 0.5 MG/2 ML NEB INH SCH (19:54)
[2024-08-13] MEDS: Atorvastatin Calcium 40 MG TAB PO SCH (22:35)
[2024-08-13] MEDS: Montelukast Sodium 10 mg Tablet PO SCH (22:36)
[2024-08-13] MEDS: Pregabalin 50 MG CAP PO SCH (22:36)
[2024-08-13] MEDS: rOPINIRole HCl 1 MG TAB PO SCH (22:36)
[2024-08-13] MEDS: Ranolazine ER 500 MG TAB PO SCH (22:36)
[2024-08-13] MEDS: ALPRAZolam 0.25 MG TAB PO PRN (22:38)
[2024-08-14 05:07] LABS: #Basophils 0.03 10x3/uL (0.0-0.2); #Eosinophils Less than 0.03 10x3/uL (0.0-0.7); %Basophils 0.2 % (0.0-1.0); %Lymphocytes 5.3 % (21.0-51.0); %Monocytes 1.7 % (0.0-10.0); %Neutrophils 91.7 % (42.0-75.0); Hematocrit 47.2 % (42.0-52.0); Mean Corpuscular HGB CONC 33.9 g/dL (32.0-36.0); Mean Corpuscular Hemoglobin 30.1 pg (27.0-31.0); Mean Corpuscular Volume 88.7 fL (78.0-98.0); Mean Platelet Volume 9.7 fL (7.4-10.4); Platelet Count 250 10x3/uL (130-400); RBC Distribution Width 13.1 % (11.5-14.5); Red Blood Cell (RBC) Count 5.32 mill/uL (4.70-6.10)
[2024-08-14 05:28] LABS: Anion Gap 17 mmol/L (10-20); BUN (Urea Nitrogen) 15 mg/dL (8.4-25.7); Calc. Creatinine Clearance 137 mL/min (70-130); Calcium 8.9 mg/dL (7.8-10.44); Carbon Dioxide 21 mmol/L (22-29); Chloride 103 mmol/L (98-107); Estimated GFR 89; Glucose 184 mg/dL (70-105); Potassium 4.5 mmol/L (3.5-5.1); Sodium 136 mmol/L (136-145)
[2024-08-14] MEDS: cloNIDine 0.1 MG TAB PO PRN (05:37)
[2024-08-14] MEDS: Bupropion 150 MG SR.TAB PO SCH (09:40)
[2024-08-14] MEDS: Isosorbide Mononitrate 60 MG ER.TAB PO SCH (09:40)
[2024-08-14] MEDS: Clopidogrel Bisulfate 75 MG TAB PO SCH (09:40)
[2024-08-14] MEDS: metFORMIN 500 MG TAB PO SCH (09:40)
[2024-08-14] MEDS: Carvedilol 6.25 MG TAB PO SCH (09:41)
[2024-08-14] MEDS: Ferrous Sulfate 325 MG TAB PO SCH (09:41)
[2024-08-14] MEDS: Tamsulosin HCl 0.4 MG CAP PO SCH (09:41)
[2024-08-14] MEDS: Aspirin 81 mg Enteric Coated Tablet PO SCH (09:41)
[2024-08-14] MEDS: Furosemide 20 MG TAB PO SCH (09:50)
[2024-08-14] MEDS: Pantoprazole DR 40 MG TAB PO SCH (10:01)
[2024-08-14] MEDS: Insulin Lispro 100 UNIT/ML 10 ML VIAL SC PRN (12:31)
[2024-08-14 15:50] VITALS: BP 182/100; TEMP 97.8
== END 2024-08-14 17:27 | DRG 178 ==
LOC: ERS 13:29 → 2NO 15:58
PROVIDERS: ADMIT Internal Medicine; ATTEND Family Medicine
DX: J69.0 Pneumonitis due to inhalation of food and vomit (principal); I69.951 Hemiplegia and hemiparesis following unspecified cerebrovascular disease affecting right dominant side; K21.9 Gastro-esophageal reflux disease without esophagitis; E11.9 Type 2 diabetes mellitus without complications; J44.9 Chronic obstructive pulmonary disease, unspecified; I11.0 Hypertensive heart disease with heart failure; J45.909 Unspecified asthma, uncomplicated; I25.10 Atherosclerotic heart disease of native coronary artery without angina pectoris; G47.33 Obstructive sleep apnea (adult) (pediatric); I50.9 Heart failure, unspecified; Z79.899 Other long term (current) drug therapy
CPT/HCPCS: 36415; 36416; 71045; 71275; 80048; 83880; 84484; 85025; 87040; 94640; J0360; J0692; J1650; J1815; J1956; J2272; J2543; J3370; J7030; J7512; J7620; J7626; Q9967